=== PATIENT | female | born 2000 | race Caucasian/White ===

== ENCOUNTER 2024-06-07 15:04 | Outpatient (OUT) | payer OTHER, SELFPAY ==
[2024-06-07 15:34] LABS: BOX Test Reference Lab UNITY; BOX Test Sent Out UNITY
[2024-06-07 15:35] LABS: Basophils Percent Auto 0.2 % (0.2-2.0); Eosinophils Absolute Auto 0.1 10^3/uL (0.0-0.7); Eosinophils Percent Auto 0.5 % (0.9-7.0); Hematocrit 35.7 % (36.0-48.0); Hemoglobin 12.6 g/dL (12.0-16.0); Immature Granulocytes Abs Auto 0.02 10^3/uL (0.00-0.03); Immature Granulocytes Pct Auto 0.2 % (0.0-0.5); Lymphocytes Absolute Auto 2.6 10^3/uL (1.2-3.8); Mean Corpuscular HGB Conc 35.3 g/dL (29.9-35.2); Mean Corpuscular Hemoglobin 31.5 pg (26.7-34.0); Mean Corpuscular Volume 89.3 fL (81.0-99.0); Monocytes Absolute Auto 0.6 10^3/uL (0.3-0.8); Monocytes Percent Auto 6.2 % (1.7-12.0); Neutrophils Absolute Auto 6.1 10^3/uL (1.4-6.5); Neutrophils Percent Auto 64.9 % (43.0-75.0); Platelet Count 284 10^3/uL (150-450); Red Cell Distribution Width 13.3 % (11.0-15.0); White Blood Count 9.4 10^3/uL (4.0-11.0)
[2024-06-07 15:45] LABS: Estimated Average Glucose 97 mg/dL
[2024-06-07 15:53] LABS: Amphetamine Screen Urine NEGATIVE (NEGATIVE); Barbiturates Screen Urine NEGATIVE (NEGATIVE); Benzodiazepines Screen Urine NEGATIVE (NEGATIVE); Buprenorphine Screen Urine NEGATIVE (NEGATIVE); Cannabinoid Screen Urine NEGATIVE (NEGATIVE); Cocaine Screen Urine NEGATIVE (NEGATIVE); Methadone Screen Urine NEGATIVE (NEGATIVE); Methamphetamines Screen Urine NEGATIVE (NEGATIVE); Opiate Screen Urine NEGATIVE (NEGATIVE); Oxycodone Screen Urine NEGATIVE (NEGATIVE); Phencyclidine Screen Urine NEGATIVE (NEGATIVE); Tricyclic Antidepressant Urine NEGATIVE (NEGATIVE)
[2024-06-09 05:10] LABS: HCV Ab Non Reactive (Non Reactive); HIV Ab/p24 Ag Screen Non Reactive (Non Reactive); Rubella Antibodies, IgG 5.05 index (Immune >0.99)
[2024-06-09 06:10] LABS: HBsAg Screen Negative (Negative)
[2024-06-09 11:14] LABS: Rapid Plasma Reagin, Quant Non Reactive titer (NonRea<1:1)
== END 2024-06-07 15:05 | disposition home or self-care (01) ==
PROVIDERS: Visit Provider Obstetrics & Gynecology
DX: Z34.01 Encounter for supervision of normal first pregnancy, first trimester (principal); Z36.0 Encounter for antenatal screening for chromosomal anomalies; N92.6 Irregular menstruation, unspecified
CPT/HCPCS: 36415; 80307; 83036; 85025; 86592; 86762; 86803; 86850; 86900; 86901; 87086; 87340; 87389

== ENCOUNTER 2024-09-03 10:51 | Outpatient (OUT) | payer OTHER, SELFPAY ==
--- OUTSIDE RECORDS SUMMARY | 2024-09-03 09:00 | XMS_ITS | Encounter Summary ---
Author Organization [facility] Address [address] [place] [place] [address] Care Team Providers Care Concrete Finisher Apprentice Name Role Phone Unavailable Primary Care Provider Unavailabl e Encounter Details Date Type Department Care Team (Latest Contact Info) Description 09/03/2024 9:00 AM EDT Ancillary Procedure [facility] [address] [facility] [place] [address] Encounter for follow-up ultrasound of anatomy Social History Tobacco Use Types Packs/Day Years Used Date Smoking Tobacco: Never Smokeless Tobacco: Never Alcohol Use Standard Drinks/Week Comments Never 0 (1 standard drink = 0.6 oz pur e alcohol) Estimated Date of Delivery Comme nts Yes 12/18/2024 Based on Ultraso und Sex and Gender Information Value Date Recorded Sex Assigned at Female 10/19/2022 8:44 AM EDT Legal Sex Female 11:46 PM EDT Gender Identity Female 10/19/2022 8:44 AM EDT Sexual Orientation Not on file documented as of this encounter Plan of Treatment Upcoming Encounters Date Type Department Care Team (Late st Contact Info) Description 10/02/2024 9:30 AM EDT Routine [facility] [address] [place] [address] Sheba Walker PA [address] [place], [place] [id number] Pending Results Name Type Priority Associated Diagnoses Date /Time US OB limited 1+ fetuses Imaging Routine Encounter for follow-up ultrasound of anatomy 09/03/2024 9:23 AM EDT documented as of this encounter Visit Diagnoses Diagnosis Encounter for follow-up ultrasound of anatomy documented in this encounter
--- OUTSIDE RECORDS SUMMARY | 2024-09-03 10:55 | XMS_ITS | Encounter Summary ---
Author Organization [facility] Address [address] [place] [address] Care Team Providers Care School Janitor Name Role Phone Unavailable Primary Care Provider Unavailabl e Encounter Details Date Type Department Care Team (Latest Contact Info) Description 08/27/2024 Travel Social History Tobacco Use Types Packs/Day Years [...] AM EDT Routine [facility] [address] [facility] [place] [id number] Sehba Walker PA [address] [facility] [address] [place], [facility] documented as of this encounter Visit Diagnoses Not on filedocumented in this encounter
--- OUTSIDE RECORDS SUMMARY | 2024-09-03 10:55 | XMS_ITS | Patient Health Record ---
Author Organization [facility] Address [address] [place] [address] Care Team Providers Care Rack Production Worker Name Role Phone GENOVEVA RANDALLEN Primary Care Provider Unavailabl e Allergies No Known Allergies Reason For Referral No Information Medications Medication SIG (Take, Route, Frequency, Duration) Notes Start Date End Date Status 1.5-30 MG-MCG 1 tablet Orally Once a day A ctive Immunizations Vaccine Route Administration Date Status Comme nts [id number] Quad PFS (0.5mL Admin) 18 y/o & older Unknown 07/25/2021 Refused z2022 Fluzone Quad MDV (0.5m L Admin) 6mo & older Unknown 04/29/2021 Contraindications z2023 Fluzone, 6mo & older, Quad PFS (0.5mL Admin) Unknown 05/11/2023 Refused Social History Tobacco Use: Social History Observation Description Date Details (start date - stop date) Unknown Tobacco Use Question Answer Notes Are you a Uses tobacco in other forms Additional Findings: Tobacco User e-Cigarette Problems Problem Type SNOMED Code ICD Code Onset Dates Problem Status W/U Status Risk Notes Problem 527511790 Nausea (R11.0) Active confirmed Problem 47035857 Less than 8 week s gestation of (Z3A.01) Active confirmed Problem Mixed anxiety and depressive disorder (516143575) Anxiety and depression (F41.8) Active confirmed Problem 20329815 Other tobacco product nicotine dependence, uncomplicated (F17.290) Active confirmed Plan Of Treatment No Information Insurance Providers Payer Name Payer Address Payer Phone Subscriber Number Group Number Insured Name Patient Relationship to Insured Coverage Start Date Coverage End Date [employer] [facility] [address] [place] [address] [id number] Don Oneida Self - patient is the insured Medical (General) History Medical History History ICD Code Anxiety and depression F41.8 History of UTI Z87.440 Surgical History Surgery Date(Month/Year) wisdom teeth Hospitalization History Reason Date(Month/Year) childbirth
--- OUTSIDE RECORDS SUMMARY | 2024-09-03 10:55 | XMS_ITS | Encounter Summary ---
Author Organization [facility] Address [address] [place] [address] Care Team Providers Care Boat Hand Name Role Phone Unavailable Primary Care Provider Unavailabl e Encounter Details Date Type Department Care Team (Late Contact Info) Description 06/28/2024 Abstract [facility] [address] [facility] [place] [address] Solitario Tuttle DO [address] [place] [address] [place] [address] Social History Tobacco Use Types Packs/Day Years [...] AM EDT Routine [facility] [address] [place] [address] Sheba Walker PA [address] [facility] [place] [address] documented as of this encounter Visit Diagnoses Not on filedocumented in this encounter
--- OUTSIDE RECORDS SUMMARY | 2024-09-03 10:55 | XMS_ITS | Patient Health Record ---
Author Organization [facility] Address [address] [place] [address] Care Team Providers Care Fishery Division Chief Name Role Phone Marti Greene APRN Primary Care Provider Unava ilable Reason For Referral No Information Medications Medication SIG (Take, Route, Frequency, Duration) Notes Start Date End Date Status 04/23 1-20 MG-MCG take 1 tablet by oral route once daily Oral 1 Active Immunizations Vaccine Route Administration Date Status Comme nts DTaP Unknown 1998 Administered DTaP Unknown 1998 Administered DTaP Unknown 1998 Administered DTaP Unknown 09/24/1999 Administered DTaP Unknown 11/25/2005 Administered Hep A, ped/adol, 3 dose Unknown 09/11/2014 Administered Hep A, ped/adol, 3 dose IM Intramuscular 09/16/2016 Admini stered Hep B ( - 19 yo) Unknown 03/16/1999 Administered Hib (PRP-OMP) - PedvaxHib, 3 dose schedule Unknown 1998 Administered Hib (PRP-OMP) - PedvaxHib, 3 dose schedule Unknown 1998 Administered Hib (PRP-OMP) - PedvaxHib, 3 dose schedule Unknown 1998 Administered Hib (PRP-OMP) - PedvaxHib, 3 dose schedule Unknown 09/24/1999 Administered HPV 9 Unknown 09/11/2014 Administered HPV 9 Unknown 11/11/2014 Administered HPV 9 Unknown 04/28/2015 Administered Influenza 3 VERONICA (Afluria) 3 years+ Unknown 03/02/2012 Administered Influenza, seasonal, injectable, preservative free, 6-35 months Unknown 03/02/2012 Administered IPV (Polio) Unknown 1998 Administered IPV (Polio) Unknown 1998 Administered IPV (Polio) Unknown 07/08/1999 Administered IPV (Polio) Unknown 11/26/2003 Administered Men B (Bexsero) IM Intramuscular 09/16/2016 Administered Men B (Bexsero) IM Intramuscular 10/26/2016 Administered Meningococcal ACYW (Menactra) Unknown 09/25/2009 Administered Meningococcal ACYW (Menactra) Unknown 09/16/2015 Administered Meningococcal ACYW (Menactra) Unknown 02/10/2018 Others MMR Unknown 07/08/1999 Administered MMR Unknown 11/26/2003 Administered Tdap Unknown 10/19/2010 Administered Varicella Unknown 07/08/1999 Administered Varicella Unknown 09/05/2008 Administered Hep B ( - 17 yo) Unknown 1998 Administered Hep B ( - 17 yo) Unknown 1998 Administered Problems Problem Type SNOMED Code ICD Code Onset Dates Problem Status W/U Status Risk Notes Problem Generalized anxiety disorder (93296735) Generalized anxiety disorder (F41.1) 8 Active confirmed Problem Current moderate episode of major depressive disorder without prior episode (F32.1) 8 Active confirmed Problem Constipation (98743871) Constipation (K59.00) 9 Active confirmed Plan Of Treatment No Information Insurance Providers Payer Name Payer Address Payer Phone Subscriber Number Group Number Insured Name Patient Relationship to Insured Coverage Start Date Coverage End Date Umr [address] [address] [place] [address] [id number] Miles Ochoa Other [employer] [address] [place] [phone] [id number] Abram Landaverde Other [employer] [address] [place] [address] [id number] Miles Ochoa Other [facility] [address] [address] [place] [address] [id number] Miles Ochoa Other Medications Administered Medication Instructions Date of Administration Dosage Notes PPD 02/08/2014
--- OUTSIDE RECORDS SUMMARY | 2024-09-03 10:55 | XMS_ITS | Encounter Summary ---
Author Organization [facility] Address [address] [place] [address] Care Team Providers Care Pearl Maker Name Role Phone Unavailable Primary Care Provider Unavailabl e Encounter Details Date Type Department Care Team (Late Contact Info) Description 10/24/2022 Abstract [facility] [address] [facility] [place] [address] Solitario Tuttle DO [address] [place] [address] Dr [place], [place] [address] Social History Tobacco Use Types Packs/Day Years Used Date Smoking Tobacco: Never Smokeless Tobacco: Never Tobacco Cessation:Counseling Given: Not Answered Alcohol Use Standard Drinks/Week Comments Never 0 (1 standard drink = 0.6 oz pur e alcohol) Comments Unknown Sex and Gender Information Value Date Recorded Sex Assigned at Female 10/19/2022 8:44 AM EDT Legal Sex Female 11:46 PM EDT Gender Identity Female 10/19/2022 8:44 AM EDT Sexual Orientation Not on file documented as of this encounter Plan of Treatment Upcoming Encounters Date Type Department Care Team (Late st Contact Info) Description 10/02/2024 9:30 AM EDT Routine [facility] [address] [facility] [place] [address] Sheba Walker PA [address] [facility] [place] [address] documented as of this encounter Visit Diagnoses Not on filedocumented in this encounter
--- OUTSIDE RECORDS SUMMARY | 2024-09-03 10:55 | XMS_ITS | Clinical Summary ---
Author Organization [facility] Address [address] [place] [address] Care Team Providers Care Inspector Canned Food Reconditioning Name Role Phone Unavailable Primary Care Provider Unavailabl e Allergies No known active allergies Medications promethazine (Phenergan) 12.5 MG tabletIndications:P regnancy, unspecified gestational age,Nausea and vomiting during Take 1 tablet (12.5 mg) by mouth every 6 (six) hours if needed for nausea or vomiting for up to 30 doses Take 1 tablet by mouth every 6 hours as needed for nausea. 30 tablet 3 5 Active iron polysaccharides (ProFe) 391.3 (180 Fe) MG capsule 1 capsule 1 (one) time each day at the same time Active 28-0.8 MG tablet 1 (one) time each day at the same time Active venlafaxine (Effexor) 37.5 MG tablet 1 (one) time each day at the same time 3 Active Encounters Date Type Department Care Team Description 09/03/2024 9:50 AM EDT Routine [facility] [address] [place] [address] Solitario Tuttle DO Second trimester ; 24 weeks gestation of ; Diabetes mellitus screening 09/03/2024 9:00 AM EDT Ancillary Procedure [facility] [address] [place] [address] Encounter for follow-up ultrasound of anatomy 08/27/2024 Travel 08/06/2024 Telephone [facility] [address] [place] [address] [place] [address] Solitario Tuttle, DO 08/02/2024 10:50 AM EDT Routine [facility] [address] [place] [address] Rayne Henson, APARTMENT MANAGER 20 weeks gestation of ; Second trimester 08/02/2024 10:00 AM EDT Ancillary Procedure [facility] [address] [place] [address] Second trimester ; 16 weeks gestation of ; History of gestational diabetes; Screening, , for anatomic survey 07/28/2024 Travel 07/05/2024 10:40 AM EDT Routine [facility] [address] [place] [address] Solitario Tuttle, Second trimester ; 16 weeks gestation of ; History of gestational diabetes; Screening, , for anatomic survey 07/05/2024 Bamboo flowsheet [facility] [address] [place] [address] [place] [address] Solitario Tuttle, DO 06/29/2024 Travel 06/28/2024 Abstract [facility] OB [address] [place] [address] Solitario Tuttle, DO 06/13/2024 Abstract [facility] [address] [place] [address] [place] [address] Solitario Tuttle, DO 06/07/2024 2:00 PM EST Initial [facility] [address] [place] [address] GA: 12w2d 06/07/2024 1:30 PM EST Ancillary Procedure [facility] [address] [facility] [place] [address] Missed menses 06/07/2024 Clinisync Result Encounter [facility] External Department Unsolicited Solitario Tuttle DO 06/06/2024 Travel from Last 3 Months Social History Tobacco Use Types Packs/Day Years [...] AM EDT Sexual Orientation Not on file Last Filed Vital Signs Vital Sign Reading Time Taken Comments Blood Pressure 116/62 09/03/2024 10:32 AM EDT Pulse - - Temperature - - Respiratory Rate - - Oxygen Saturation - - Inhaled Oxygen Concentration - - Weight 88 kg (194 lb) 09/03/2024 10:32 AM EDT Height 162.6 cm (5' 4 ) 05/03/2022 12:00 PM EST Body Mass Index 33.3 05/03/2022 12:00 PM EST Plan of Treatment Upcoming Encounters Date Type Department Care Team (Late st Contact Info) Description 10/02/2024 9:30 AM EDT Routine [facility] [address] [facility] [place] [id number] Sheba Walker PA [address] [facility] [place] [address] Procedures Procedure Name Priority Date/Time Associated Diagnosis Comments POCT URINALYSIS DIPSTICK Routine 09/03/2024 10:17 AM EDT Second trimester POCT URINALYSIS DIPSTICK Routine 08/02/2024 11:32 AM EDT 20 weeks gestation of US OB 14+ WEEKS ANATOMY SCAN Routine 08/02/2024 11:10 AM EDT Second trimester 16 weeks gestation of History of gestational diabetes Screening, , for anatomic survey POCT URINALYSIS DIPSTICK Routine 06/11/2024 7:34 AM EDT Missed menses POCT , URINE Routine 06/11/2024 7:34 AM EDT Missed menses HBSAG SCREEN Routine 06/07/2024 3:25 PM EST RAPID PLASMA REAGIN, QUANT Routine 06/07/2024 3:25 PM EST HCV ANTIBODY RFX TO QUANT PCR Routine 06/07/2024 3:25 PM EST HIV AB/P24 AG WITH REFLEX Routine 06/07/2024 3:25 PM EST ALL RUBELLA IGG AB Routine 06/07/2024 3: 25 PM EST ALL TYPE AND SCREEN Routine 06/07/2024 3 :25 PM EST MLR HEMOGLOBIN A1C Routine 06/07/2024 3: 25 PM EST ALL CBC WITH AUTO DIFF Routine 06/07/2024 3:25 PM EST BOX TEST Routine 06/07/2024 3:25 PM EST [facility] DRUG SCREEN RAPID (URINE) Routine 06/07/2024 3:12 PM EST US OB TRANSVAGINAL Routine 06/07/2024 1: 56 PM EST Missed menses from Last 3 Months Results * POCT urinalysis dipstick manually resulted (09/03/2024 10:17 AM EDT) Only the most recent of3 resultswithin the time period is included. Color, UA Yellow Clarity, UA Clear Glucose, UA Negative Negative - 2000(110) ++++ mg/dL Bilirubin, UA Negative Negative - 4(70) +++ mg/dL Ketones, UA Negative Negative - 160(16) ++++ mg/dL Spec Grav, UA 1.020 1 - 1.03 Blood, UA Positive Negative - 50 Stephon/mcL Comment:trace pH, UA 6.5 5 - 9 Protein, UA Negative Negative - 2000(20) ++++ mg/dL Urobilinogen, UA 0.2 0.2 - 12 mg/dL Leukocytes, UA Trace Negative - 500+++ Rafael/mcL Nitrite, UA Negative Negative - Positive Urine 09/03/2024 10:1 7 AM EDT us Solitario Parag DO POINT OF CARE TEST ENTER/EDIT OR DERABLES Final Result * US OB 14+ weeks anatomy scan (08/02/2024 11:10 AM EDT) Anatomical Region Laterality Modality Body Ultrasound 08/05/2024 8:56 PM EDT Narrative 08/05/2024 8:56 PM EDT EXAM: US OB 14+ WEEKS ANATOMY SCAN HISTORY: Anatomy. SANDRO 12/18/2024. . COMPARISON: U/S Ob 06/07/2024 TECHNIQUE: Two-dimensional transabdominal grayscale ultrasound imaging of the pelvis was performed. FINDINGS: Gestation: Single Presentation: Breech Cardiac Activity: 165 beats per minute Placental Location: Posterior with no sonographic abnormalities identified. Distance from Placental Tip to Cervix: 3.0 cm Cervical Length: 4.5 cm Amniotic Fluid Index: Not measured, appears visually adequate MEASUREMENTS: BPD: 4.1 cm EGA: 18 weeks 3 days HC: 17.1 cm EGA: 19 weeks 5 days AC: 14.7 cm EGA: 20 weeks 0 days FL: 3.3 cm EGA: 20 weeks to days HC/AC Ratio: 1.16 (1.08-1.26) Gestational age by today's ultrasound is 19 weeks 4 days (+/- 10 days gestation). Estimated Weight: 326 grams, +/- 49 grams ( 0 lb 12 oz). Weight Percentile for gestational age: 30 % ANATOMY C-Spine: Unremarkable T-Spine: Unremarkable L-Spine: Unremarkable Sacrum: Unremarkable Four Chamber Heart: Unremarkable LVOT: Not visualized RVOT: Suboptimally visualized Stomach: Unremarkable Kidneys: Unremarkable Bladder: Unremarkable Diaphragm: Unremarkable Cord insertion: Unremarkable Cord vessels: Three Lateral Ventricles: Unremarkable Cerebellum: Unremarkable Cisterna Magna: Unremarkable Posterior Fossa: Unremarkable Right Femur: Unremarkable Left Femur: Unremarkable Right Tib/Fib: Unremarkable Left Tib/Fib: Unremarkable Right Rad/Ulnar: Unremarkable Left Rad/Ulnar: Unremarkable Right Humerus: Unremarkable Left Humerus: Unremarkable Nose/Lips: Unremarkable Profile: Not visualized IMPRESSION: 1. Single, live intrauterine gestation 20 weeks, 2 days by LMP. Today's ultrasound measurements correlate with a gestational age of 19 weeks 4 days. 2. Nonvisualization of the LVOT and profile. Suboptimal visualization of the RVOT. Remaining anatomy appears unremarkable. Interpreted by: Electronically signed by CANDY VERMA II, MD, PHD at 05-Aug-2024 08:54:51 PM [facility] Procedure Note Candy Verma MD - 08/05/2024 EXAM: US OB 14+ WEEKS ANATOMY SCAN HISTORY: Anatomy. SANDRO 12/18/2024. . COMPARISON: U/S Ob 06/07/2024 TECHNIQUE: Two-dimensional transabdominal grayscale ultrasound imaging ofthe pelvis was performed. FINDINGS: Gestation: Single Presentation: Breech Cardiac Activity: 165 beats per minute Placental Location: Posterior with no sonographic abnormalitiesidentified. Distance from Placental Tip to Cervix: 3.0 cm Cervical Length: 4.5 cm Amniotic Fluid Index: Not measured, appears visually adequate MEASUREMENTS: BPD: 4.1 cm EGA: 18 weeks 3 days HC: 17.1 cm EGA: 19 weeks 5 days AC: 14.7 cm EGA: 20 weeks 0 days FL: 3.3 cm EGA: 20 weeks to days HC/AC Ratio: 1.16 (1.08-1.26) Gestational age by today's ultrasound is 19 weeks 4 days (+/- 10 daysgestation). Estimated Weight: 326 grams, +/- 49 grams ( 0 lb 12 oz). Weight Percentile for gestational age: 30 % ANATOMY C-Spine: Unremarkable T-Spine: Unremarkable L-Spine: Unremarkable Sacrum: Unremarkable Four Chamber Heart: Unremarkable LVOT: Not visualized RVOT: Suboptimally visualized Stomach: Unremarkable Kidneys: Unremarkable Bladder: Unremarkable Diaphragm: Unremarkable Cord insertion: Unremarkable Cord vessels: Three Lateral Ventricles: Unremarkable Cerebellum: Unremarkable Cisterna Magna: Unremarkable Posterior Fossa: Unremarkable Right Femur: Unremarkable Left Femur: Unremarkable Right Tib/Fib: Unremarkable Left Tib/Fib: Unremarkable Right Rad/Ulnar: Unremarkable Left Rad/Ulnar: Unremarkable Right Humerus: Unremarkable Left Humerus: Unremarkable Nose/Lips: Unremarkable Profile: Not visualized IMPRESSION: 1. Single, live intrauterine gestation 20 weeks, 2 days by LMP. Today'sultrasound measurements correlate with a gestational age of 19 weeks 4days. 2. Nonvisualization of the LVOT and profile. Suboptimalvisualization of the RVOT. Remaining anatomy appearsunremarkable. Interpreted by: Electronically signed by CANDY VERMA II, MD, PHD [id number] 08:54:51 PM [facility] us Solitario Parag DO IMG OB US PROCEDURES Final Resul t * (ABNORMAL) POCT , urine manually resulted (06/11/2024 7:34 AM EDT) Pathologist [facility] Preg Test, Ur Positive Negative Urine 06/11/2024 7:34 AM EDT us Solitario Parag DO POINT OF CARE TEST ENTER/EDIT OR DERABLES Final Result * BOX TEST (06/07/2024 3:25 PM EST) Pathologist [facility] BOX TEST SENT OUT [facility] BOX1 [facility] B[facility] 06/07/24 [facility] 06/07/2024 3:25 PM EST 06/07/2024 3:30 PM EST Narrative [facility] - 06/07/2024 3:34 PM EST [place] B[facility] us Solitario Parag DO LAB BLOOD ORDERABLES Final Resul t [facility] * HBSAG SCREEN (06/07/2024 3:25 PM EST) Pathologist [facility] HBSAG SCREEN Negative Negative [facility] Comment: Performed at: [facility] [id number] Plant And Maintenance Technician: Phil Knox PhD, Phone: [phone] 06/07/2024 3:25 PM EST 06/07/2024 3:30 PM EST Narrative [facility] - 06/09/2024 11:14 AM EST Solitario Parag DO LAB BLOOD ORDERABLES Final Resul t Performing Organization Address [facility] Co de Phone Number [facility] * RAPID PLASMA REAGIN, QUANT (06/07/2024 3:25 PM EST) RAPID PLASMA REAGIN, QUANT Non Reactive NonRea<1: 1 titer [facility] Comment: Please Note: This test does not meet current guidelines for screening and diagnosis of syphilis. This test is intended for following treatment response in patients being treated for syphilis infection. To screen for syphilis infection, a reflex cascade that includes both RPR and a treponema-specific assay should be utilized, such as Treponema pallidum (Syphilis) Screening [place] (573080) or Rapid Plasma Reagin (RPR) Test With Reflex to Quantitative RPR and Confirmatory Treponema pallidum Antibodies (987158). Performed at: [facility] [id number] Plant And Maintenance Technician: Phil Knox PhD, Phone: [phone] 06/07/2024 3:25 PM EST 06/07/2024 3:30 PM EST [facility]ative [facility] 06/09/2024 11:14 AM EST [facility] LAB BLOOD ORDERABLES Final Resul t Performing Organization Address City/[facility]/ZIP Co de Phone Number [facility] * HIV AB/P24 AG WITH REFLEX (06/07/2024 3:25 PM EST) Pathologist [facility] HIV AB/P24 AG SCREEN Non Reactive Non Reactive [facility] Comment: HIV-1/HIV-2 antibodies and HIV-1 p24 antigen were NOT detected. There is no laboratory evidence of HIV infection. HIV Negative Performed at: [address] [id number] Plant And Maintenance Technician: Phil Knox PhD, Phone: [phone] 06/07/2024 3:25 PM EST 06/07/2024 3:30 PM EST Narrative [facility] - 06/09/2024 5:10 AM EST [facility] LAB BLOOD ORDERABLES Final Resul t Performing Organization Address [facility]/ZIP Co de Phone Number [facility] * HCV ANTIBODY RFX TO QUANT PCR (06/07/2024 3:25 PM EST) Pathologist [facility] HCV AB Non Reactive Non Reactive [facility] INTERPRETATION: Comment . [facility] Comment: Not infected with HCV unless early or acute infection is suspected (which may be delayed in an immunocompromised individual), or other evidence exists to indicate HCV infection. 06/07/2024 3:25 PM EST 06/07/2024 3:30 PM EST Narrative [facility] - 06/09/2024 5:10 AM EST [facility]OD ORDERABLES Final Resul t Performing Organization Address [facility] Co de Phone Number [facility] * MLR HEMOGLOBIN A1C (06/07/2024 3:25 PM EST) [facility] GLYCOHEMOGLOBIN A1C 5.0 4.5 - 6.2 % [facility] Comment: ADA RECOMMENDED LIMIT 4.0 - 6.0 ADA THERAPEUTIC TARGET < 7.0 ACTION SUGGESTED > 7.0 ESTIMATED AVERAGE GLUCOSE 97 mg/dL TB 06/07/2024 3:25 PM EST 06/07/2024 3:30 PM EST Narrative [facility] - 06/07/2024 3:49 PM EST [facility] DO [facility] Final Result Performing Organization Address City/[facility]/ZIP Co de Phone Number [facility] * ALL TYPE AND SCREEN (06/07/2024 3:25 PM EST) Pathologist [facility] BLOOD TYPE A Negative [facility] ANTIBODY SCREEN NEGATIVE [facility] 06/07/2024 3:25 PM EST 06/07/2024 3:30 PM EST Narrative [facility] - 06/07/2024 4:25 PM EST [facility] , us Solitario Parag DO [facility] Final Result [facility] * ALL RUBELLA IGG AB (06/07/2024 3:25 PM EST) [facility] RUBELLA ANTIBODIES, IGG 5.05 Immune >0.99 index TB Comment: Non-immune <0.90 Equivocal 0.90 - 0.99 Immune >0.99 06/07/2024 3:25 PM EST 06/07/2024 3:30 PM EST Narrative [facility] - 06/09/2024 5:10 AM EST us Solitario Parag [facility] Final Result Performing Organization Address City/[facility]/ZIP Co de Phone Number [facility] * (ABNORMAL) ALL CBC WITH AUTO DIFF (06/07/2024 3:25 PM EST) [facility] TB WBC 9.4 4.0 - 11.0 10 3/uL [facility] TB RBC 4.00(L) 4.20 - 5.40 10 6/uL [facility] TB HGB 12.6 12.0 - 16.0 g/dL TB TB HCT 35.7(L) 36.0 - 48.0 % TB TB MCV 89.3 81.0 - 99.0 fL TB TB MCH 31.5 26.7 - 34.0 pg TBH TBH MCHC 35.3(H) 29.9 - 35.2 g/dL TB TB RDW 13.3 11.0 - 15.0 % [facility] TB PLT 284 150 - 450 10 3/uL TB TB MPV 9.0(L) 9.5 - 13.5 fL [facility] NEUTROPHILS PERCENT AUTO 64.9 43.0 - 75.0 % [facility]H LYMPHOCYTES PERCENT AUTO 28.0 20.5 - 60.0 % [facility] MONOCYTES PERCENT AUTO 6.2 1.7 - 12.0 % TBH TBH EO % 0.5(L) 0.9 - 7.0 % [facility] BASOPHILS PERCENT AUTO 0.2 0.2 - 2.0 % [facility] IMMATURE GRANULOCYTES PCT AUTO 0.2 0.0 - 0.5 % [facility] NEUTROPHILS ABSOLUTE AUTO 6.1 1.4 - 6.5 10 3/uL TBH LYMPHOCYTES ABSOLUTE AUTO 2.6 1.2 - 3.8 10 3/uL TBH MONOCYTES ABSOLUTE AUTO 0.6 0.3 - 0.8 10 3/uL TBH TBH EO # 0.1 0.0 - 0.7 10 3/uL TBH BASOPHILS ABSOLUTE AUTO 0.0 0.0 - 0.1 10 3/uL [facility] IMMATURE GRANULOCYTES ABS AUTO 0.02 0.00 - 0.03 10 3/uL [facility] 06/07/2024 3:25 PM EST 06/07/2024 3:30 PM EST Narrative [facility] - 06/07/2024 3:36 PM EST us Solitario Parag DO [facility] Final Result [facility] TB * [facility] DRUG SCREEN RAPID (URINE) (06/07/2024 3:12 PM EST) Pathologist [facility] CANNABINOID SCREEN URINE NEGATIVE NEGATIVE TBH PHENCYCLIDINE SCREEN URINE NEGATIVE NEGATIVE TBH COCAINE SCREEN URINE NEGATIVE NEGATIVE TBH METHAMPHETAMINES SCREEN URINE NEGATIVE NEGATIVE TBH OPIATE SCREEN URINE NEGATIVE NEGATIVE TBH AMPHETAMINE SCREEN URINE NEGATIVE NEGATIVE TBH BENZODIAZEPINES SCREEN URINE NEGATIVE NEGATIVE TBH TRICYCLIC ANTIDEPRESSANT URINE NEGATIVE NEGATIVE TBH METHADONE SCREEN URINE NEGATIVE NEGATIVE TBH BARBITURATES SCREEN URINE NEGATIVE NEGATIVE TBH OXYCODONE SCREEN URINE NEGATIVE NEGATIVE TBH BUPRENORPHINE SCREEN URINE NEGATIVE NEGATIVE TBH Comment: DRUG CLASS TEST SYSTEM CUT-OFF CONCENTRATIONS ARE FOLLOWS: AMP (Amphetamine): 500 ng/mL BAR (Barbiturates): 200 ng/mL BZO (Benzodiazepines): 150 ng/mL BUP (Buprenorphine): 10 ng/mL FLORIAN (Cocaine): 150 ng/mL mAMP (Methamphetamine): 500 ng/mL MTD (Methadone): 200 ng/mL OPI (Opiates): 100 ng/mL OXY (Oxycodone): 100 ng/mL PCP (Phencyclidine): 25 ng/mL THC (Cannabinoids): 50 ng/mL TCA (Trycyclic Antidepressants): 300 ng/mL 06/07/2024 3:12 PM EST 06/07/2024 3:30 PM EST Narrative [facility] - 06/07/2024 3:54 PM EST us Solitario Tuttle DO [facility] Final Result [facility] * US OB transvaginal (06/07/2024 1:56 PM EST) Anatomical Region Laterality Modality Body Ultrasound 06/08/2024 8:25 AM EST Narrative 06/08/2024 8:25 AM EST EXAM: US OB TRANSVAGINAL HISTORY: Dating. COMPARISON: None available. TECHNIQUE: Two-dimensional transvaginal grayscale ultrasound imaging of the pelvis was performed. Color Doppler evaluation of the ovaries was also performed. FINDINGS: The uterus demonstrates a normal homogeneous echotexture. The cervix measures 5.1 cm in length and the cervical os is closed. The right ovary measures 1.7 x 1.6 x 1.7 cm and demonstrates a normal echotexture. There is normal color Doppler flow. The left ovary measures 2.9 x 1.4 x 2.3 cm and demonstrates a normal echotexture. There is normal color Doppler flow. No fluid is present within the cul-de-sac. There is a single, live intrauterine gestation identified with a heart rate of 152 beats per minute and a crown-rump length measurement of 5.8 cm, correlating to a gestational age of 12 weeks 2 days (+/- 8 days). There is no subchorionic hemorrhage visualized. IMPRESSION: 1. Single, live intrauterine gestation 11 weeks, 3 days by LMP. Today's ultrasound measurements correlate with a gestational age of 12 weeks 2 days (+/- 8 days). SANDRO by today's ultrasound is 12/18/2024. 2. Normal color Doppler evaluation of the bilateral ovaries. Electronically Signed:Electronically signed by CANDY VERMA II, MD, PHD at 08-Jun-2024 08:23:59 AM [facility] Procedure Note Candy Verma MD - 06/08/2024 EXAM: US OB TRANSVAGINAL HISTORY: Dating. COMPARISON: None available. TECHNIQUE: Two-dimensional transvaginal grayscale ultrasound imaging ofthe pelvis was performed. Color Doppler evaluation of the ovaries was alsoperformed. FINDINGS: The uterus demonstrates a normal homogeneous echotexture. The cervixmeasures 5.1 cm in length and the cervical os is closed. The right ovary measures 1.7 x 1.6 x 1.7 cm and demonstrates a normalechotexture. There is normal color Doppler flow. The left ovary measures 2.9 x 1.4 x 2.3 cm and demonstrates a normalechotexture. There is normal color Doppler flow. No fluid is present within the cul-de-sac. There is a single, live intrauterine gestation identified with a fetalheart rate of 152 beats per minute and a crown-rump length measurement of5.8 cm, correlating to a gestational age of 12 weeks 2 days (+/- 8 days).There is no subchorionic hemorrhage visualized. IMPRESSION: 1. Single, live intrauterine gestation 11 weeks, 3 days by LMP. Today'sultrasound measurements correlate with a gestational age of 12 weeks 2days (+/- 8 days). SANDRO by today's ultrasound is 12/18/2024. 2. Normal color Doppler evaluation of the bilateral ovaries. Electronically Signed:Electronically signed by CANDY VERMA II, MD, PHDat 08-Jun-2024 08:23:59 AM [facility] us Solitario Parag DO IMG OB US PROCEDURES Final Resul t from Last 3 Months Insurance [employer]
--- OUTSIDE RECORDS SUMMARY | 2024-09-03 10:56 | XMS_ITS | Encounter Summary ---
Author Organization [facility] Address [address] [place] [address] Care Team Providers Care Oil Dispatcher Name Role Phone Unavailable Primary Care Provider Unavailabl e Encounter Details Date Type Department Care Team (Late Contact Info) Description 06/13/2024 Abstract [facility] [address] [place] [address] Solitario Tuttle DO [address] [place] [address] [place] [address] Social History Tobacco Use Types Packs/Day [...] AM EDT Routine [facility] OB [address] [place] [address] Sheba Walker PA [address] [facility] [place] [address] documented as of this encounter Visit Diagnoses Not on filedocumented in this encounter
[2024-09-03 12:13] LABS: Basophils Percent Auto 0.2 % (0.2-2.0); Eosinophils Absolute Auto 0.1 10^3/uL (0.0-0.7); Eosinophils Percent Auto 0.6 % (0.9-7.0); Hematocrit 32.3 % (36.0-48.0); Hemoglobin 11.1 g/dL (12.0-16.0); Immature Granulocytes Abs Auto 0.17 10^3/uL (0.00-0.03); Immature Granulocytes Pct Auto 1.4 % (0.0-0.5); Lymphocytes Absolute Auto 2.5 10^3/uL (1.2-3.8); Lymphocytes Percent Auto 19.6 % (20.5-60.0); Mean Corpuscular HGB Conc 34.4 g/dL (29.9-35.2); Mean Corpuscular Hemoglobin 32.6 pg (26.7-34.0); Mean Platelet Volume 9.5 fL (9.5-13.5); Monocytes Absolute Auto 0.8 10^3/uL (0.3-0.8); Neutrophils Absolute Auto 9.1 10^3/uL (1.4-6.5); Neutrophils Percent Auto 72.2 % (43.0-75.0); Platelet Count 248 10^3/uL (150-450); Red Cell Distribution Width 13.5 % (11.0-15.0); White Blood Count 12.6 10^3/uL (4.0-11.0)
[2024-09-03 12:38] LABS: Glucose 1 Hour 112 mg/dL (<130)
== END 2024-09-03 10:52 | disposition home or self-care (01) ==
LOC: LAB 10:53
PROVIDERS: Visit Provider Obstetrics & Gynecology
DX: Z34.92 Encounter for supervision of normal pregnancy, unspecified, second trimester (principal); Z13.1 Encounter for screening for diabetes mellitus
CPT/HCPCS: 36415; 82105; 82950; 85025

== ENCOUNTER 2024-09-03 10:56 | Outpatient (OUT) | payer OTHER, SELFPAY ==
[2024-09-05 01:07] LABS: AFP Value 94.9 ng/mL (.); Gest. Age on Collection Date 20.3 weeks (.); Gestat. Age Based On As provided (.); Insulin Dep Diabetes No (.); Maternal Age At EDD 26.5 yr (.); OSBR Risk 1 IN 1162 (.); Results Report (.)
== END 2024-09-03 10:57 | disposition home or self-care (01) ==
LOC: LAB 10:57
PROVIDERS: Visit Provider Nurse Practitioner Family
DX: Z34.92 Encounter for supervision of normal pregnancy, unspecified, second trimester (principal)
CPT/HCPCS: 36415; 82105

== ENCOUNTER 2024-11-10 15:29 | Observation (INO) | payer OTHER, SELFPAY ==
--- OUTSIDE RECORDS SUMMARY | 2024-10-30 11:30 | XMS_ITS | Encounter Summary ---
Author Organization [facility] Address [address] [place] [address] Care Team Providers Care Paper Finisher Name Role Phone Unavailable Primary Care Provider Unavailabl e Reason for Visit * Reason Comments Routine Visit Encounter Details Date Type Department Care Team (Late Contact Info) Description 10/30/2024 11:30 AM EDT Routine [facility] [address] [place] [phone] Solitario Tuttle DO [address] [facility] [place], [place] [id number] Third trimester ([facility]); 33 weeks gestation of ([facility]) Social History Tobacco Use Types Packs/Day Years [...] on file documented as of this encounter Last Filed Vital Signs Vital Sign Reading Time Taken Comments Blood Pressure 110/60 10/30/2024 12:00 PM EDT Pulse - - Temperature - - Respiratory Rate - - Oxygen Saturation - - Inhaled Oxygen Concentration - - Weight 93.8 kg (206 lb 12 oz) 10/30/2024 12:00 P M EDT Height - - Body Mass Index 35.49 05/03/2022 12:00 PM EST documented in this encounter Progress Notes * She Benito, AUT[employer] PARTS SALESPERSON - 10/30/2024 11:30 AM EDT Reason for Appointment: Patient ID: Oneida Ochoa is a 24 y.o. female who presents for Routine Visit Patient presents today for Return OB appointment. MEDICATIONS Current Outpatient Medications Medication Instructions iron polysaccharides (ProFe) 391.3 (180 Fe) MG capsule 1 capsule, Every 24 hours 28-0.8 MG tablet Every 24 hours promethazine (PHENERGAN) 12.5 mg, Oral, Every 6 hours PRN, Take 1 tablet by mouth every 6 hours as needed for nausea. venlafaxine (Effexor) 37.5 MG tablet Every 24 hours ALLERGIES No Known Allergies PROBLEMS Active Ambulatory Problems Diagnosis Date Noted No Active Ambulatory Problems Resolved Ambulatory Problems Diagnosis Date Noted No Resolved Ambulatory Problems No Additional Past Medical History HISTORY PAST MEDICAL HISTORY SOCIAL HISTORY No past medical history on file. Social History Tobacco Use Smoking status: Never Smokeless tobacco: Never Vaping Use Vaping status: Every Day Substance Use Topics Alcohol use: Never Drug use: Yes Types: Marijuana FAMILY HISTORY No family history on file. SURGICAL HISTORY Past Surgical History: Procedure Laterality Date PAP SMEAR 10/21/2021 negative WISDOM TOOTH EXTRACTION teeth REVIEW OF SYSTEMS Review of Systems: Review of Systems Constitutional: Negative. HENT: Negative. Eyes: Negative. Respiratory: Negative. Cardiovascular: Negative. Gastrointestinal: Negative. Genitourinary: Negative. Musculoskeletal: Negative. Skin: Negative. Neurological: Negative. All other systems reviewed and are negative. Hematological: Negative. Endocrine: Negative. Allergic/Immunologic: Negative. OBJECTIVE Objective: OBGyn Exam Vitals: Estimated body mass index is 35.49 kg/m?? as calculated from the following: Height as of 05/03/22: 5' 4 . Weight as of this encounter: 206 lb 12 oz. BP: 110/60 Patient's last menstrual period was 03/19/2024. ASSESSMENT & PLAN ICD-10-CM 1. Third trimester ([facility]) Z34.93 POCT urinalysis dipstick manually resulted 2. 33 weeks gestation of ([facility]) Z3A.33 Return OB: Patient presents today for a routine obstetrics appointment. Patient is currently 33w0d . Patient states she is doing well but has complaints of being tired due to current . Patient has verbalizes frequent movement. labor precautions was discussed/given and patient was instructed to perform kick counts three times a day. Orders Placed This Encounter Procedures POCT urinalysis dipstick manually resulted Follow Up: Patient is to return to office in 2 week for routine OB appointment. Documented by She Benito LPN on behalf of: Solitario Tuttle DO documented in this encounter Plan of Treatment Upcoming Encounters Date Type Department Care Team (Late st Contact Info) Description 11/14/2024 9:30 AM EDT Routine [facility] [address] [place] [address] Rayne Henson, SENIOR INFORMATION SECURITY CONSULTANT [address] [place] [phone] documented as of this encounter Procedures Procedure Name Priority Date/Time Associated Diagnosis Comments POCT URINALYSIS DIPSTICK Routine 10/30/2024 12:05 PM EDT Third trimester ([facility]) documented in this encounter Results * (ABNORMAL) POCT urinalysis dipstick manually resulted (10/30/2024 12:05 PM EDT) Color, UA Yellow Clarity, UA Clear Glucose, UA Negative Negative - 2000(110) ++++ mg/dL Bilirubin, UA Negative Negative - 4(70) +++ mg/dL Ketones, UA Negative Negative - 160(16) ++++ mg/dL Spec Grav, UA 1.015 1 - 1.03 Blood, UA Negative Negative - 50 Stephon/mcL pH, UA 6.0 5 - 9 Protein, UA Negative Negative - 2000(20) ++++ mg/dL Urobilinogen, UA 0.2 0.2 - 12 mg/dL Leukocytes, UA Moderate Negative - 500+++ Rafael/mcL Nitrite, UA Negative Negative - Positive Urine 10/30/2024 12:0 5 PM EDT Solitario Tuttle DO POINT OF CARE TEST ENTER/EDIT OR DERABLES Final Result documented in this encounter Visit Diagnoses Diagnosis Third trimester ([facility]) state, incidental 33 weeks gestation of ([facility]) documented in this encounter
--- OUTSIDE RECORDS SUMMARY | 2024-11-10 15:32 | XMS_ITS | Encounter Summary ---
Author Organization [facility] Address [address] [place] [address] Care Team Providers Care Transaction Processor Name Role Phone Unavailable Primary Care Provider Unavailabl e Encounter Details Date Type Department Care Team (Late Contact Info) Description 10/30/2024 Bamboo flowsheet [facility] [address] [place] [address] Solitario Tuttle DO [address] [place], [place] [address] Social History Tobacco Use Types Packs/Day Years [...] Encounters Date Type Department Care Team (Late Contact Info) Description 11/14/2024 9:30 AM EDT Routine [facility] [address] [facility] [place] [place] [address] Rayne Henson, PODIATRIST ASSISTANT [address] [place] [phone] documented as of this encounter Visit Diagnoses Not on filedocumented in this encounter
--- OUTSIDE RECORDS SUMMARY | 2024-11-10 15:32 | XMS_ITS | Encounter Summary ---
Author Organization [facility] Address [address] [place] [address] Care Team Providers Care Clinical Rehabilitation Aide Name Role Phone Unavailable Primary Care Provider Unavailabl e Encounter Details Date Type Department Care Team (Latest Contact Info) Description 11/09/2024 Travel Social History Tobacco Use Types Packs/Day [...] AM EDT Routine [facility] [address] [place] [address] Rayne Henson, JASMINE [address] [place] [address] documented as of this encounter Visit Diagnoses Not on filedocumented in this encounter
--- OUTSIDE RECORDS SUMMARY | 2024-11-10 15:32 | XMS_ITS | Clinical Summary ---
Author Organization [facility] Address [address] [place] [address] Care Team Providers Care Curb Attendant Name Role Phone Unavailable Primary Care Provider Unavailabl e Allergies No known active allergies Medications promethazine (Phenergan) 12.5 MG tabletIndications:P regnancy, unspecified gestational age ([facility]),Nausea and vomiting during ([facility]) Take 1 tablet (12.5 mg) by mouth [...] Encounters Date Type Department Care Team Description 11/09/2024 Travel 10/30/2024 11:30 [place] [phone] Solitario Tuttle DO Third trimester ([facility]); 33 weeks gestation of ([facility]) 10/30/2024 [place] [address] Solitario Tuttle, 10/24/2024 Travel 10/16/2024 1:40 PM EDT Routine [facility] Patel [facility] [place] [address] Solitario Tuttle, Third trimester ([facility]); 31 weeks gestation of ([facility]) 10/16/2024 1:00 PM EDT Ancillary Procedure [place] [address] size inconsistent with dates ([facility]) 10/11/2024 Travel 10/02/2024 9:30 AM EDT Routine [facility] [place] [address] Sheba Walker PA Third trimester ([facility]); Screen for STD (sexually transmitted disease); size inconsistent with dates ([facility]) 10/02/2024 External Result Encounter NOM[facility] External Department Unsolicited Sheba Walker PA 10/02/2024 Bamboo flowsheet [facility] Patel [facility] [place] [address] Sheba Walker PA 09/26/2024 Travel 09/03/2024 9:50 AM EDT Routine [place] [place] [address] Solitario Tuttle, Second trimester ([facility]); 24 weeks gestation of ([facility]); Diabetes mellitus screening 09/03/2024 9:00 AM EDT Ancillary Procedure [facility] [place] [address] Encounter for follow-up ultrasound of anatomy ([facility]) 09/03/2024 Clinisync Result Encounter NOMS External Department Unsolicited Solitario Tuttle DO 08/27/2024 Travel from Last 3 Months Social History [...] oz) 10/30/2024 12:00 P M EDT Height 162.6 cm (5' 4 ) 05/03/2022 12:00 PM EST Body Mass Index 35.49 05/03/2022 12:00 PM EST Plan of Treatment Upcoming Encounters Date Type Department Care Team (Late st Contact Info) Description 11/14/2024 9:30 AM EDT Routine [facility] [address] [place] [address] Rayne Henson, ENVIRONMENTAL EPIDEMIOLOGIST [address] [place] [place] [phone] Procedures Procedure Name Priority Date/Time Associated Diagnosis Comments POCT URINALYSIS DIPSTICK Routine 10/30/2024 12:05 PM EDT Third trimester ([facility]) POCT URINALYSIS DIPSTICK Routine 10/16/2024 1:37 PM EDT Third trimester ([facility]) US OB FOLLOW UP TRANSABDOMINAL APPROACH Routine 10/16/2024 1:20 PM EDT size inconsistent with dates ([facility]) RECURRENT VAGINITIS (HTRX) Routine 10/02/2024 12:13 PM EDT POCT URINALYSIS DIPSTICK Routine 10/02/2024 9:53 AM EDT Third trimester ([facility]) AFP, SERUM, OPEN SPINA BIFIDA Routine 09/03/2024 12:06 PM EDT GLUCOSE 1 HOUR Routine 09/03/2024 12:06 PM EDT ALL CBC WITH AUTO DIFF Routine 12:02 PM EDT POCT URINALYSIS DIPSTICK Routine 09/03/2024 10:17 AM EDT Second trimester ([facility]) US OB LIMITED 1+ FETUSES Routine 09/03/2024 9:23 AM EDT Encounter for follow-up ultrasound of anatomy ([facility]) from Last 3 Months Results * (ABNORMAL) POCT urinalysis dipstick manually resulted (10/30/2024 12:05 PM EDT) Only the most recent of4 resultswithin the time period is included. Color, [...] Positive Urine 10/30/2024 12:0 5 PM EDT us Solitario Tuttle DO POINT OF CARE TEST ENTER/EDIT OR DERABLES Final Result * US OB follow up transabdominal approach (10/16/2024 1:20 PM EDT) Anatomical Region Laterality Modality Body Ultrasound 10/17/2024 6:48 PM EDT Impressions 10/18/2024 8:21 AM EDT Single, live intrauterine , current sonographic age of 31 weeks and 4 days, with an estimated date of delivery of December 14, 2024. TRANSCRIBED BY: ELECTRONICALLY SIGNED BY: Tomer Dowell MD Narrative 10/18/2024 8:21 AM EDT FINDINGS: A single, live intrauterine is present with normal cardiac rate of 167 beats per minute. Normal activity and amniotic fluid volume. Amniotic fluid index is 12 cm. Morphology is grossly normal. The current sonographic age is 31 weeks and 4 days, based on the following measurements: BPD 7.9 cm (31 weeks, 4 days) Head Circumference 29.2 cm (32 weeks, 1 day) Abdominal Circumference 27.2 cm (31 weeks, 2 days) Femur Length 6.0 cm (31 weeks, 2 days) Presentation Breech These measurements result in an estimated date of delivery of December 14, 2024. The current estimated weight is 1759 grams +/- 264g (3 pounds, 14 ounces). Procedure Note Tomer Dowell MD - 10/18/2024 FINDINGS: A single, live intrauterine is present with normal cardiacrate of 167 beats per minute. Normal activity and amniotic fluidvolume. Amniotic fluid index is 12 cm. Morphology is grossly normal. Thecurrent sonographic age is 31 weeks and 4 days, based on the followingmeasurements: BPD 7.9 cm (31 weeks, 4 days) Head Circumference 29.2 cm (32 weeks, 1 day) Abdominal Circumference 27.2 cm (31 weeks, 2 days) Femur Length 6.0 cm (31 weeks, 2 days) Presentation Breech These measurements result in an estimated date of delivery of 2024. The current estimated weight is 1759 grams +/- 264g (3pounds, 14 ounces). IMPRESSION: Single, live intrauterine , current sonographic age of 31 weeksand 4 days, with an estimated date of delivery of December 14, 2024. TRANSCRIBED BY: ELECTRONICALLY SIGNED BY: Tomer Dowell MD Sheba JESSICA IMG OB US PROCEDURES Final Resul t * RECURRENT VAGINITIS (HTRX) (10/02/2024 12:13 PM EDT) [facility] ATOPOBIUM VAGINAE 0 19.961 - 24.689 ppm 10/03/2024 5:58 AM EDT [facility] ATOPOBIUM VAGINAE Not Detected 19.961 - 24.689 ppm 10/03/2024 5:58 AM EDT [facility] BVAB 2,3 (BACTERIAL VAGINOSIS ASSOCIATED BACTERIA 2, 3); MOBILUNCUS SPP 0 19.961 - 24.689 ppm 10/03/2024 5:58 AM EDT [facility] BVAB 2,3 (BACTERIAL VAGINOSIS ASSOCIATED BACTERIA 2, 3); MOBILUNCUS SPP Not Detected 19.961 - 24.689 ppm 10/03/2024 5:58 AM EDT [facility] ALPHONSE ALBICANS, PARAPSILOSIS, TROPICALIS 0 19.961 - 30.770 ppm 10/03/2024 5:58 AM EDT [facility] ALPHONSE ALBICANS, PARAPSILOSIS, TROPICALIS Not Detected 19.961 - 30.770 ppm 10/03/2024 5:58 AM EDT [facility] ALPHONSE GLABRATA 0 23.000 - 32.138 ppm 10/03/2024 5:58 AM EDT [facility] ALPHONSE GLABRATA Not Detected 23.000 - 32.138 ppm 10/03/2024 5:58 AM EDT [facility] ALPHONSE KRUSEI 0 23.000 - 32.271 ppm 10/03/2024 5:58 AM EDT [facility] ALPHONSE KRUSEI Not Detected 23.000 - 32.271 ppm 10/03/2024 5:58 AM EDT [facility] CHLAMYDIA TRACHOMATIS 0 23.000 - 31.467 ppm 10/03/2024 5:58 AM EDT [facility] CHLAMYDIA TRACHOMATIS Not Detected 23.000 - 31.467 ppm 10/03/2024 5:58 AM EDT [facility] [place] GARDNERELLA VAGINALIS 0 19.961 - 24.689 ppm 10/03/2024 5:58 AM EDT [facility] [place] GARDNERELLA VAGINALIS Not Detected 19.961 - 24.689 ppm 10/03/2024 5:58 AM EDT [facility] [place] MEGASPHAERA (TYPES 1, 2) 0 19.961 - 24.689 ppm 10/03/2024 5:58 AM EDT [facility] [place] MEGASPHAERA (TYPES 1, 2) Not Detected 19.961 - 24.689 ppm 10/03/2024 5:58 AM EDT [facility] [place] NEISSERIA GONORRHOEAE 0 23.000 - 32.117 ppm 10/03/2024 5:58 AM EDT [facility] [place] NEISSERIA GONORRHOEAE Not Detected 23.000 - 32.117 ppm 10/03/2024 5:58 AM EDT [facility] TRICHOMONAS VAGINALIS 0 23.000 - 32.119 ppm 10/03/2024 5:58 AM EDT [facility] TRICHOMONAS VAGINALIS Not Detected 23.000 - 32.119 ppm 10/03/2024 5:58 AM EDT [facility] [place] MYCOPLASMA GENITALIUM 0 19.961 - 24.689 ppm 10/03/2024 5:58 AM EDT [facility] MYCOPLASMA GENITALIUM Not Detected 19.961 - 24.689 ppm 10/03/2024 5:58 AM EDT [facility] [place] Tissue 10/02/2024 12:1 3 PM EDT 10/03/2024 1:32 AM EDT us Sheba JESSICA LAB BLOOD ORDERABLES Final Resul t [facility] [address] [place] [address] * GLUCOSE 1 HOUR (09/03/2024 12:06 PM EDT) GLUCOSE 1 HOUR 112 <130 mg/dL [facility] 09/03/2024 12:0 6 PM EDT 09/03/2024 12:48 PM EDT Narrative LINDA - 09/03/2024 12:50 PM EDT Solitario Tuttle DO LAB BLOOD ORDERABLES Final Resul t LINDA [facility] * AFP, SERUM, OPEN SPINA BIFIDA (09/03/2024 12:06 PM EDT) RESULTS Report . [facility] TEST RESULTS: *Screen Negative* . [facility] GEST. AGE ON COLLECTION DATE 20.3 . weeks [facility] GESTAT. AGE BASED ON As provided . [facility] Comment: Recalculations are not recommended when gestational dating by LMP and ultrasound are within 10 days. [age]O [age] [facility] RACE . [facility] WEIGHT 185 . lbs [facility] INSULIN DEP DIABETES No . [facility] MULTIPLE GESTATION No . [facility] AFP VALUE 94.9 . ng/mL [facility] AFP MOM 1.84 . [facility] OSBR RISK 1 IN 1162 . [facility] INTERPRETATION Comment . [facility] Comment: Interpretation: Screen Negative This result is screen negative for OSB. The AFP MoM calculated is based on the gestational age provided. MS-AFP can identify up to 80% of open neural tube defects. Closed neural tube defects and some open defects may not be detected by this test. This test does not screen for Down Syndrome or Trisomy 18. If screening for Down Syndrome or Trisomy 18 is desired, contact [facility] to discuss available options. The [employer] recommends amniocentesis be offered to women age 35 and older. COMMENT: Comment . [facility] Comment: Donna Perez, Ph.D., [facility] Director References: Available Upon Request. Multiples Of Median Cutoffs For AFP Elevations Majano 2.5 Black 2.8 IDD 2.0 Twins 4.5 Abbreviation Definitions IDD - Insulin Dep Diabetes OSBR - Open Spina Bifida Risk For further inquiries contact [facility] at [phone]. This test was developed and its performance characteristics determined by [employer]. It has not been cleared or approved by the Food and Drug Administration. Performed at: [facility] [address] [place], [place] [id number] Fax Machine Repairer: Albert Wells [facility], Phone: [phone] 09/03/2024 12:0 6 PM EDT 09/03/2024 12:48 PM EDT Narrative [facility] - 09/05/2024 1:07 AM EDT N N ULTRASOUND [id number] 2 20 N 1 [address] White/ Rayne Henson NP LAB BLOOD ORDERABLES Final Re sult [facility] * (ABNORMAL) ALL CBC WITH AUTO DIFF (09/03/2024 12:02 PM EDT) [facility] WBC 12.6(H) 4.0 - 11.0 10 3/uL [facility]H RBC 3.40(L) 4.20 - 5.40 10 6/uL [facility] HGB 11.1(L) 12.0 - 16.0 g/dL [facility] HCT 32.3(L) 36.0 - 48.0 % [facility] MCV 95.0 81.0 - 99.0 fL [facility] MCH 32.6 26.7 - 34.0 pg [facility] MCHC 34.4 29.9 - 35.2 g/dL [facility] RDW 13.5 11.0 - 15.0 % [facility]H PLT 248 150 - 450 10 3/uL [facility] TBH MPV 9.5 9.5 - 13.5 fL [facility] NEUTROPHILS PERCENT AUTO 72.2 43.0 - 75.0 % [facility] LYMPHOCYTES PERCENT AUTO 19.6(L) 20.5 - 60.0 % [facility] MONOCYTES PERCENT AUTO 6.0 1.7 - 12.0 % [facility] EO % 0.6(L) 0.9 - 7.0 % [facility] BASOPHILS PERCENT AUTO 0.2 0.2 - 2.0 % [facility] IMMATURE GRANULOCYTES PCT AUTO 1.4(H) 0.0 - 0.5 % [facility] NEUTROPHILS ABSOLUTE AUTO 9.1(H) 1.4 - 6.5 10 3/uL [facility] LYMPHOCYTES ABSOLUTE AUTO 2.5 1.2 - 3.8 10 3/uL [facility] MONOCYTES ABSOLUTE AUTO 0.8 0.3 - 0.8 10 3/uL [facility] TBH EO # 0.1 0.0 - 0.7 10 3/uL [facility] BASOPHILS ABSOLUTE AUTO 0.0 0.0 - 0.1 10 3/uL [facility] IMMATURE GRANULOCYTES ABS AUTO 0.17(H) 0.00 - 0.03 10 3/uL [facility] 09/03/2024 12:0 2 PM EDT 09/03/2024 12:16 PM EDT Narrative [facility] - 09/03/2024 12:16 PM EDT us Solitario Parag DO [facility] Final Result [facility] * US OB limited 1+ fetuses (09/03/2024 9:23 AM EDT) Anatomical Region Laterality Modality Body Ultrasound 09/04/2024 11:3 3 PM EDT Narrative 09/04/2024 11:33 PM EDT EXAM: US OB LIMITED 1+ FETUSES HISTORY: Incomplete anatomy. Suboptimally visualized RVOT, LVOT and profile. SANDRO 12/18/2024. . Vaginal delivery x1. COMPARISON: U/S OB 08/02/2024, 06/07/2024. TECHNIQUE: Two-dimensional transabdominal grayscale ultrasound imaging of the pelvis was performed. FINDINGS: Gestation: Single Presentation: Cephalic Cardiac Activity: 140 beats per minute Placental Location: Posterior with no sonographic abnormalities identified. Distance from Placental Tip to Cervix: Not measured, appears visually adequate Cervical Length: Obscured by overlying head Amniotic Fluid: Not measured, appears visually adequate ANATOMY Four Chamber Heart: Unremarkable LVOT: Unremarkable RVOT: Unremarkable Profile: Unremarkable IMPRESSION: 1. Single, live intrauterine gestation 24 weeks, 6 days by LMP. 2. Unremarkable LVOT, RVOT and profile. This completes the anatomy survey. Interpreted by: Electronically signed by CANDY VERMA II, MD, PHD at 04-Sep-2024 11:31:40 PM [facility] Procedure Note Candy Verma MD - 09/04/2024 EXAM: US OB LIMITED 1+ FETUSES HISTORY: Incomplete anatomy. Suboptimally visualized RVOT, LVOTand profile. SANDRO 12/18/2024. . Vaginal delivery x1. COMPARISON: U/S OB 08/02/2024, 06/07/2024. TECHNIQUE: Two-dimensional transabdominal grayscale ultrasound imaging ofthe pelvis was performed. FINDINGS: Gestation: Single Presentation: Cephalic Cardiac Activity: 140 beats per minute Placental Location: Posterior with no sonographic abnormalitiesidentified. Distance from Placental Tip to Cervix: Not measured, appears visuallyadequate Cervical Length: Obscured by overlying head Amniotic Fluid: Not measured, appears visually adequate ANATOMY Four Chamber Heart: Unremarkable LVOT: Unremarkable RVOT: Unremarkable Profile: Unremarkable IMPRESSION: 1. Single, live intrauterine gestation 24 weeks, 6 days by LMP. 2. Unremarkable LVOT, RVOT and profile. This completes the anatomysurvey. Interpreted by: Electronically signed by CANDY VERMA II, MD, PHD [id number] 11:31:40 PM [facility] us Solitario Tuttle DO IMG OB US PROCEDURES Final Resul t from Last 3 Months Insurance [employer]
--- OUTSIDE RECORDS SUMMARY | 2024-11-10 15:33 | XMS_ITS | Patient Health Record ---
Author Organization [facility] C Address [address] [place] [address] Care Team Providers Care Company Controller Name Role Phone GENOVEVA RANDALLEN Primary Care Provider Unavailabl e Allergies No Known Allergies Reason For Referral No Information Medications Medication SIG (Take, Route, Frequency, Duration) Notes Start Date End Date Status 1.5-30 MG-MCG 1 tablet Orally Once a day A ctive Immunizations Vaccine Route Administration Date Status Comme nts [id number] Quad PFS (0.5mL Admin) 16 y/o & [...] Problem Status W/U Status Risk Notes Problem Gestation less than 9 weeks (944421789) Less than 8 weeks gestation of (Z3A.01) Active confirmed Problem Nausea (046634701) Nausea (R11.0) Active confirmed Problem Mixed anxiety and depressive disorder (156815774) Anxiety and depression (F41.8) Active confirmed Problem Tobacco user (570485041) Other tobacco product nicotine dependence, uncomplicated (F17.290) Active confirmed Plan Of Treatment No Information Insurance Providers Payer Name Payer Address Payer Phone Subscriber Number Group Number Insured Name Patient Relationship to Insured Coverage Start Date Coverage End Date [employer] [place] [address] [place] [address] [id number] Oneida Ochoa Self - patient is the insured Medical (General) History Medical History History ICD Code Anxiety and depression F41.8 History of UTI Z87.440 Surgical History Surgery Date(Month/Year) wisdom teeth Hospitalization History Reason Date(Month/Year) childbirth
--- OUTSIDE RECORDS SUMMARY | 2024-11-10 15:33 | XMS_ITS | Encounter Summary ---
Author Organization [facility] Address [address] [place] [address] Care Team Providers Care Aircraft Cleaner Name Role Phone Unavailable Primary Care Provider Unavailabl e Encounter Details Date Type Department Care Team (Late st Contact Info) Description 06/13/2024 Abstract [facility] LEUNG [address] [place] [address] Solitario Tuttle DO [address] [facility] [place] [address] Social History Tobacco Use Types Packs/Day [...] 9:30 AM EDT Routine [facility] [address] [facility] [place] [address] Rayne Henson NP [address] [place] [phone] documented as of this encounter Visit Diagnoses Not on filedocumented in this encounter
--- OUTSIDE RECORDS SUMMARY | 2024-11-10 15:33 | XMS_ITS | Encounter Summary ---
Author Organization [facility] Address [address] [place] [address] Care Team Providers Care President [place] Name Role Phone Unavailable Primary Care Provider Unavailabl e Encounter Details Date Type Department Care Team (Late Contact Info) Description 10/24/2022 Abstract SANTY LEUNG [address] [place] [address] Solitario Tuttle DO [address] [facility] [address] [place], [facility] Social History Tobacco Use Types Packs/Day Years [...] Info) Description 11/14/2024 9:30 AM EDT Routine [facility] LEUNG 102 [facility] [place] [address] Rayne Henson, JASMINE [address] [place] [address] documented as of this encounter Visit Diagnoses Not on filedocumented in this encounter
--- OUTSIDE RECORDS SUMMARY | 2024-11-10 15:33 | XMS_ITS | Patient Health Record ---
Author Organization [facility], [facility] . Address [address], [place] [address] Care Team Providers Care Manager Programs Name Role Phone Marti Greene APRN Primary [...] Unknown 07/08/1999 Administered Varicella Unknown 09/05/2008 Administered Problems Problem Type SNOMED Code ICD Code Onset Dates Problem Status W/U Status Risk Notes Problem Generalized anxiety disorder (24201112) Generalized anxiety disorder (F41.1) 8 Active confirmed Problem Moderate major depression, single episode (52398183) Current moderate episode of major depressive disorder without prior episode (F32.1) 8 Active confirmed Problem Constipation (94943700) Constipation (K59.00) 9 Active confirmed Plan Of Treatment No Information Insurance Providers Payer Name Payer Address Payer Phone Subscriber Number Group Number Insured Name Patient Relationship to Insured Coverage Start Date Coverage End Date Umr [address] [address] [place] [address] [id number] Miles Ochoa Other [employer] [address] [place] [address] [id number] Abram Landaverde Other [employer] [address] [place] [address] [id number] Miles Ochoa Other [facility] [address] [address] [place] [address] [id number] Miles Ochoa Other Medications Administered Medication Instructions Date of Administration Dosage Notes PPD 02/08/2014
--- OUTSIDE RECORDS SUMMARY | 2024-11-10 15:33 | XMS_ITS | Encounter Summary ---
Author Organization [facility] Address [address] [place] [address] Care Team Providers Care Wash Box Operator Name Role Phone Unavailable Primary Care Provider Unavailabl e Encounter Details Date Type Department Care Team (Late st Contact Info) Description 06/28/2024 Abstract [facility] Paulino LEUNG [address] [place] [address] Solitario Tuttle DO [address] [place] [address] Social History Tobacco Use Types Packs/Day [...] 9:30 AM EDT Routine [facility] [address] [facility] [place] [address] Rayne Henson NP [address] [place] [phone] documented as of this encounter Visit Diagnoses Not on filedocumented in this encounter
[2024-11-10 15:41] VITALS: TEMP 37
[2024-11-10 15:42] VITALS: BP 125/76; PULSE 108
[2024-11-10 16:03] LABS: Glucose Urine UA NEGATIVE (NEGATIVE)
[2024-11-10 16:22] LABS: Cast Seen? NONE SEEN #/LPF (NONE SEEN); Crystals Seen? None Seen #/HPF (None Seen); Urine Culture Indicated NO
== END 2024-11-10 16:55 | disposition home or self-care (01) ==
PROVIDERS: Admitting Provider Obstetrics & Gynecology; Visit Provider Obstetrics & Gynecology
DX: O26.893 Other specified pregnancy related conditions, third trimester (principal); R10.9 Unspecified abdominal pain; Z3A.34 34 weeks gestation of pregnancy
CPT/HCPCS: 59025; 81001; G0378; G0379

== ENCOUNTER 2024-11-20 15:13 | Outpatient (REF) | payer OTHER, SELFPAY ==
--- OUTSIDE RECORDS SUMMARY | 2024-11-14 09:30 | XMS_ITS | Encounter Summary ---
Author Organization [facility] Address [address] [place] [address] Care Team Providers Care Origination Specialist Name Role Phone Unavailable Primary Care Provider Unavailabl e Reason for Visit * Reason Comments Routine Visit Encounter Details Date Type Department Care Team (Late st Contact Info) Description 11/14/2024 9:30 AM EDT Routine [facility] [address] [facility] [place] [address] Rayne Henson, JASMINE [address] [facility] [place] [address] Third trimester ([facility]); 35 weeks gestation of ([facility]); H/O gestational diabetes in prior , currently ([facility]); Nausea and vomiting during ([facility]) Social History Tobacco Use Types Packs/Day Years [...] Sign Reading Time Taken Comments Blood Pressure 118/72 11/14/2024 9:55 AM EDT Pulse - - Temperature - - Respiratory Rate - - Oxygen Saturation - - Inhaled Oxygen Concentration - - Weight 95.3 kg (210 lb) 11/14/2024 9:55 AM EDT Height - - Body Mass Index 36.05 05/03/2022 12:00 PM EST documented in this encounter Progress Notes * Rayne Henson NP - 11/14/2024 9:30 AM EDT Reason for Appointment: Patient ID: Oneida Ochoa is a 24 y.o. female who presents for Routine Visit Patient presents today for Return OB appointment. MEDICATIONS Current Outpatient Medications Medication Instructions iron polysaccharides (ProFe) 391.3 (180 Fe) MG capsule 1 capsule, Every 24 hours ondansetron ODT (ZOFRAN-ODT) 4 mg, Oral, Every 6 hours PRN 28-0.8 MG tablet Every 24 hours promethazine [...] Negative. Endocrine: Negative. Allergic/Immunologic: Negative. OBJECTIVE Objective: Physical Exam Constitutional: Appearance: Normal appearance. She is well-developed. Cardiovascular: Rate and Rhythm: Normal rate and regular rhythm. Pulmonary: Effort: Pulmonary effort is normal. Breath sounds: Normal breath sounds. Abdominal: General: Bowel sounds are normal. There is no distension. Palpations: Abdomen is soft. Tenderness: There is no abdominal tenderness. There is no guarding or rebound. Musculoskeletal: General: No swelling. Normal range of motion. Right lower leg: No edema. Left lower leg: No edema. Neurological: Mental Status: She is alert and oriented to person, place, and time. Skin: General: Skin is warm and dry. Psychiatric: Mood and Affect: Mood normal. Behavior: Behavior normal. Vitals and nursing note reviewed. Exam conducted with a oral therapist present. Vitals: Estimated body mass index is 36.05 kg/m?? as calculated from the following: Height as of 05/03/22: 5' 4 . Weight as of this encounter: 210 lb. BP: 118/72 Patient's last menstrual period was 03/19/2024. ASSESSMENT & PLAN ICD-10-CM 1. Third trimester ([facility]) Z34.93 POCT urinalysis dipstick manually resulted 2. 35 weeks gestation of ([facility]) Z3A.35 3. H/O gestational diabetes in prior , currently ([facility]) O09.299 Z86.32 4. Nausea and vomiting during ([facility]) O21.9 ondansetron ODT (Zofran- ODT) 4 MG disintegrating tablet Return OB: Patient presents today for a routine obstetrics appointment. Patient is currently 35w1d . Patient states she is doing well but has complaints of being tired due to current . Patient complains of nausea starting up again and more consistent priscila krishnamurthy occurring. Patient has verbalizes frequent movement. labor precautions was discussed/given and patient was instructed to perform kick counts three times a day. Zofran was sent to pharmacy to help patent w/nausea. Orders Placed This Encounter Procedures POCT urinalysis dipstick manually resulted Follow Up: Patient is to return to office in 1 week for routine OB appointment. Documented by Mali Oglesby MA on behalf of: Rayne Henson NP documented in this encounter Plan of Treatment Upcoming Encounters Date Type Department Care Team (Late st Contact Info) Description 11/28/2024 1:00 PM EDT Ancillary Procedure [facility] [address] [facility] [place] [phone] 11/28/2024 1:50 PM EDT Routine [facility] [address] [facility] [place] [address] Sheba Walker PA [address] [facility] [address] [place], [place] [phone] documented as of this encounter Procedures Procedure Name Priority Date/Time Associated Diagnosis Comments POCT URINALYSIS DIPSTICK Routine 11/14/2024 9:56 AM EDT Third trimester ([facility]) documented in this encounter Results * POCT urinalysis dipstick manually resulted (11/14/2024 9:56 AM EDT) Color, UA Yellow Clarity, UA Clear Glucose, UA Negative Negative - 2000(110) ++++ mg/dL Bilirubin, UA Negative Negative - 4(70) +++ mg/dL Ketones, UA Negative Negative - 160(16) ++++ mg/dL Spec Grav, UA 1.015 1 - 1.03 Blood, UA Negative Negative - 50 Stephon/mcL pH, UA 7.0 5 - 9 Protein, UA Negative Negative - 2000(20) ++++ mg/dL Urobilinogen, UA 1.0 0.2 - 12 mg/dL Leukocytes, UA 3+ Negative - 500+++ Rafael/mcL Nitrite, UA Negative Negative - Positive Urine 11/14/2024 9:56 AM EDT Rayen Henson NP POINT OF CARE TEST ENTER/EDIT ORDERABLES Final Result documented in this encounter Visit Diagnoses Diagnosis Third trimester ([facility]) state, incidental 35 weeks gestation of ([facility]) H/O gestational diabetes in prior , currently ([facility]) Nausea and vomiting during ([facility]) documented in this encounter
--- OUTSIDE RECORDS SUMMARY | 2024-11-20 09:40 | XMS_ITS | Encounter Summary ---
Author Organization [facility] Address [address] [place] [address] Care Team Providers Care Potato Chip Maker Name Role Phone Unavailable Primary Care Provider Unavailabl e Reason for Visit * Reason Comments Routine Visit Encounter Details Date Type Department Care Team (Late st Contact Info) Description 11/20/2024 9:40 AM EDT Routine [facility] [address] [facility] [place] [phone] Solitario Tuttle DO [address] [facility] [address] [place], [facility] 36 weeks gestation of ([facility]); Third trimester ([facility]); H/O gestational diabetes in prior , currently ([facility]); Excessive growth affecting management of , antepartum, single or unspecified fetus ([facility]) Social History Tobacco Use Types Packs/Day Years [...] Sign Reading Time Taken Comments Blood Pressure 100/60 11/20/2024 9:57 AM EDT Pulse - - Temperature - - Respiratory Rate - - Oxygen Saturation - - Inhaled Oxygen Concentration - - Weight 95.4 kg (210 lb 6.4 oz) 11/20/2024 9:57 A M EDT Height - - Body Mass Index 36.12 05/03/2022 12:00 PM EST documented in this encounter Progress Notes * She Ochoaalley, BRAIN - 11/20/2024 9:40 AM EDT Reason for Appointment: Patient ID: Oneida Ochoa is a 24 y.o. female who presents for Routine Visit Patient presents today for Return OB appointment. MEDICATIONS Current Outpatient Medications Medication Instructions aspirin 81 mg, Daily 28-0.8 MG tablet Every 24 hours ALLERGIES No Known Allergies PROBLEMS Active Ambulatory Problems Diagnosis Date Noted No Active Ambulatory Problems Resolved Ambulatory Problems Diagnosis Date Noted No Resolved Ambulatory Problems No Additional Past Medical History HISTORY PAST MEDICAL HISTORY SOCIAL HISTORY History reviewed. No pertinent past medical history. Social History Tobacco Use Smoking status: Never [...] Constitutional: Appearance: Normal appearance. She is well-developed. Genitourinary: Vulva normal. Cardiovascular: Rate and Rhythm: Normal rate and [...] nursing note reviewed. Exam conducted with a form stripper present. Vitals: Estimated body mass index is 36.12 kg/m?? as calculated from the following: Height as of 05/03/22: 5' 4 . Weight as of this encounter: 210 lb 6.4 oz. BP: 100/60 Patient's last menstrual period was 03/19/2024. ASSESSMENT & PLAN ICD-10-CM 1. 36 weeks gestation of ([facility]) Z3A.36 POCT urinalysis dipstick manually resulted 2. Third trimester ([facility]) Z34.93 POCT urinalysis dipstick manually resulted CULTURE, GROUP B STREP WITH SUSCEPTIBLITY CULTURE, GROUP B STREP WITH SUSCEPTIBLITY 3. H/O gestational diabetes in prior , currently ([facility]) O09.299 Z86.32 4. Excessive growth affecting management of , antepartum, single or unspecified fetus ([facility]) O36.60X0 Patient is doing well but has complaints of being tired and having maternal discomfort due to . Patient verbalized frequent movement and was instructed to perform kick counts three times per day. labor precautions were given, LARC consent was signed/declined, and GBS was obtained. Cervical check was performed and patient is 1cm dilated. Orders Placed This Encounter Procedures CULTURE, GROUP B STREP WITH SUSCEPTIBLITY POCT urinalysis dipstick manually resulted Follow Up: Patient is to return to office in 1 week for routine OB appointment Documented by She Benito LPN on behalf of: Solitario Tuttle DO documented in this encounter Plan of Treatment Upcoming Encounters Date Type Department Care Team (Late st Contact Info) Description 11/28/2024 1:00 PM [place] [address] 11/28/2024 1:50 PM [place] [phone] Sheba Walker PA [address] [place] [address] [place] [address] Scheduled Orders Name Type Priority Associated Diagnoses Orde r Schedule CULTURE, GROUP B STREP WITH SUSCEPTIBLITY Lab Routine Third trimester ([facility]) Expected: 11/20/2024, Expires: 11/20/2025 OB follow up transabdominal approach Imaging Routine Excessive growth affecting management of , antepartum, single or unspecified fetus ([facility]) Expected: 11/20/2024, Expires: 03/22/2025 documented as of this encounter Procedures Procedure Name Priority Date/Time Associated Diagnosis Comments POCT URINALYSIS DIPSTICK Routine 11/20/2024 10:03 AM EDT 36 weeks gestation of ([facility]) Third trimester ([facility]) documented in this encounter Results * (ABNORMAL) POCT urinalysis dipstick manually resulted (11/20/2024 10:03 AM EDT) Color, UA Yellow Clarity, UA Clear Glucose, UA Negative Negative - 2000(110) ++++ mg/dL Bilirubin, UA Negative Negative - 4(70) +++ mg/dL Ketones, UA Negative Negative - 160(16) ++++ mg/dL Spec Grav, UA 1.015 1 - 1.03 Blood, UA Negative Negative - 50 Stephon/mcL pH, UA 6.5 5 - 9 Protein, UA Positive Negative - 2000(20) ++++ mg/dL Urobilinogen, UA 1.0 0.2 - 12 mg/dL Leukocytes, UA Positive Negative - 500+++ Rafael/mcL Comment:3+ Nitrite, UA Negative Negative - Positive Urine 11/20/2024 10:0 3 AM EDT Solitario Tuttle DO POINT OF CARE TEST ENTER/EDIT OR DERABLES Final Result documented in this encounter Visit Diagnoses Diagnosis 36 weeks gestation of ([facility]) Third trimester ([facility]) state, incidental H/O gestational diabetes in prior , currently ([facility]) Excessive growth affecting management of , antepartum, single or unspecified fetus ([facility]) documented in this encounter
--- OUTSIDE RECORDS SUMMARY | 2024-11-20 15:15 | XMS_ITS | Clinical Summary ---
Author Organization [facility] Address [address] [place] [address] Care Team Providers Care Roll Mill Operator Name Role Phone Unavailable Primary Care Provider Unavailabl e Allergies No known active allergies Medications 28-0.8 MG tablet 1 (one) time each day at the same time Active aspirin 81 MG EC tablet Take 81 mg by mouth Daily Active promethazine (Phenergan) 12.5 MG tabletIndications: , unspecified gestational age ([facility]),Nausea and vomiting during ([facility]) Take 1 tablet (12.5 mg) by mouth every 6 (six) hours if needed for nausea or vomiting for up to 30 doses Take 1 tablet by mouth every 6 hours as needed for nausea. 30 tablet 3 06/08/19 25 025 Discontinued iron polysaccharides (ProFe) 391.3 (180 Fe) MG capsule 1 capsule 1 (one) time each day at the same time 025 Discontinued venlafaxine (Effexor) 37.5 MG tablet 1 (one) time each day at the same time 05/03/19 23 025 Discontinued ondansetron ODT (Zofran-ODT) 4 MG disintegrating tabletIndications: Nausea and vomiting during ([facility]) Take 1 tablet (4 mg) by mouth every 6 (six) hours if needed for nausea or vomiting 30 tablet 2 11/15/19 25 025 Discontinued Encounters Date Type Department Care Team Description 11/20/2024 9:40 AM EDT Routine [facility] [place] [facility] [address] [place] [address] Solitario Tuttle, 36 weeks gestation of ([facility]); Third trimester ([facility]); H/O gestational diabetes in prior , currently ([facility]); Excessive growth affecting management of , antepartum, single or unspecified fetus ([facility]) 11/20/2024 Bamboo flowsheet [facility] [address] [place] [address] Solitario Tuttle, DO 11/14/2024 9:30 AM EDT Routine [facility] [place] [facility] [address] [place] [address] Rayne Henson, JASMINE Third trimester ([facility]); 35 weeks gestation of ([facility]); H/O gestational diabetes in prior , currently ([facility]); Nausea and vomiting during ([facility]) 11/14/2024 Bamboo flowsheet [facility] [address] [place] [address] Rayne Henson, JASMINE 11/10/2024 Clinisync Result Encounter [facility]OM[facility] External Department Unsolicited Solitario Tuttle, 11/09/2024 Travel 10/30/2024 11:30 AM EDT Routine [facility] [place] [facility] [address] [place] [address] Solitario Tuttle, Third trimester ([facility]); 33 weeks gestation of ([facility]) 10/30/2024 Bamboo flowsheet [facility] [place] [address] [place] [address] Solitario Tuttle, DO 10/24/2024 Travel 10/16/2024 1:40 PM EDT Routine [facility] [place] [facility] [place] [address] Solitario Tuttle DO Third trimester ([facility]); 31 weeks gestation of ([facility]) 10/16/2024 1:00 PM EDT Ancillary Procedure [facility] [place] [address] size inconsistent with dates ([facility]) 10/11/2024 Travel 10/02/2024 9:30 AM EDT Routine [facility] [place] [address] Sheba Walker PA Third trimester ([facility]); Screen for STD (sexually transmitted disease); size inconsistent with dates ([facility]) 10/02/2024 External Result Encounter [facility]OM[facility] External Department Unsolicited Sheba Walker PA 10/02/2024 Bamboo flowsheet [facility] [place] [address] Sheba Walker PA 09/26/2024 Travel 09/03/2024 9:50 AM EDT Routine [facility] [place] [place] [address] Solitario Tuttle DO Second trimester ([facility]); 24 weeks gestation of ([facility]); Diabetes mellitus screening 09/03/2024 9:00 AM EDT Ancillary Procedure SANT[facility] Pat[facility] [place] [place] [address] Encounter for follow-up ultrasound of anatomy ([facility]) 09/03/2024 Clinisync Result Encounter NOMS External Department [...] oz) 11/20/2024 9:57 A M EDT Height 162.6 cm (5' 4 ) 05/03/2022 12:00 PM EST Body Mass Index 36.12 05/03/2022 12:00 PM EST Plan of Treatment Upcoming Encounters Date Type Department Care Team (Late st Contact Info) Description 11/28/2024 1:00 PM EDT Ancillary Procedure [facility] [address] [place] [address] 11/28/2024 1:50 PM EDT Routine [facility] [address] [facility] [place] [place] [address] Sheba Walker PA [address] [place] [address] Procedures Procedure Name Priority Date/Time Associated Diagnosis Comments POCT URINALYSIS DIPSTICK Routine 11/20/2024 10:03 AM EDT 36 weeks gestation of ([facility]) Third trimester ([facility]) POCT URINALYSIS DIPSTICK Routine 11/14/2024 9:56 AM EDT Third trimester ([facility]) TBH URINE MICROSCOPIC ONLY Routine 11/10/2024 3:36 PM EDT TBH UA (CLEAN/CATCH) WIND TURBINE BLADE REPAIR TECHNICIAN/MICRO IF IND. Routine 11/10/2024 3:36 PM EDT POCT URINALYSIS DIPSTICK Routine 10/30/2024 12:05 PM EDT Third trimester ([facility]) POCT URINALYSIS DIPSTICK Routine 10/16/2024 1:37 PM EDT Third trimester ([facility]) US OB FOLLOW UP TRANSABDOMINAL APPROACH Routine 10/16/2024 1:20 PM EDT size inconsistent with dates ([facility]) RECURRENT VAGINITIS (HTRX) Routine 10/02/2024 12:13 PM EDT POCT URINALYSIS DIPSTICK Routine 10/02/2024 9:53 AM EDT Third trimester ([facility]) AFP, SERUM, OPEN SPINA BIFIDA Routine 09/03/2024 12:06 PM EDT GLUCOSE 1 HOUR Routine 09/03/2024 12:06 PM EDT ALL CBC WITH AUTO DIFF Routine 12:02 PM EDT POCT URINALYSIS DIPSTICK Routine 09/03/2024 10:17 AM EDT Second trimester ([facility]) US OB LIMITED 1+ FETUSES Routine 09/03/2024 9:23 AM EDT Encounter for follow-up ultrasound of anatomy ([facility]) from Last 3 Months Results * (ABNORMAL) POCT urinalysis dipstick manually resulted (11/20/2024 10:03 AM EDT) Only the most recent of6 resultswithin the time period is included. Color, [...] Urine 11/20/2024 10:0 3 AM EDT Solitario Parag DO POINT OF CARE TEST ENTER/EDIT OR DERABLES Final Result * (ABNORMAL) TBH URINE MICROSCOPIC ONLY (11/10/2024 3:36 PM EDT) TBH WBC 2-5(A) NONE SEEN #/HPF TBH TBH RBC 0-2 0 - 2 #/HPF TBH BACTERIA URINE TRACE(A) NONE SEEN #/HPF TBH MUCUS URINE NONE SEEN NONE SEEN TBH SQUAMOUS EPITHELIAL CELL URINE FEW(A) NONE/RARE #/LPF TBH CRYSTALS SEEN? None Seen None Seen #/HPF TBH CAST SEEN? NONE SEEN NONE SEEN #/LPF TBH URINE CULTURE INDICATED NO TBH 11/10/2024 3:36 PM EDT 11/10/2024 4:00 PM EDT Narrative CLINISYNC - 11/10/2024 4:23 PM EDT Solitario Parag DO CLINISYNC Final Result CLINISYNC TBH * (ABNORMAL) TBH UA (CLEAN/CATCH) WIND TURBINE BLADE REPAIR TECHNICIAN/MICRO IF IND. (11/10/2024 3:36 PM EDT) COLOR URINE LT. YELLOW YELLOW TBH CLARITY URINE CLEAR CLEAR TBH SPECIFIC GRAVITY URINE 1.010 1.005 - 1.025 TBH PH URINE 6.5 5.0 - 9.0 TBH PROTEIN URINE NEGATIVE NEG/TRACE mg/dL TBH GLUCOSE URINE UA NEGATIVE NEGATIVE mg/dL TBH BILIRUBIN URINE NEGATIVE NEGATIVE TBH KETONES URINE NEGATIVE NEGATIVE mg/dL TBH BLOOD URINE NEGATIVE NEGATIVE TBH NITRITE URINE NEGATIVE NEGATIVE TBH UROBILINOGEN URINE 0.2 0.2 - 1.0 EU/dL TBH LEUKOCYTE ESTERASE URINE SMALL(A) NEGATIVE TBH URINE MICROSCOPIC INDICATED YES TBH 11/10/2024 3:36 PM EDT 11/10/2024 4:00 PM EDT Narrative LINDA - 11/10/2024 4:23 PM EDT us Solitario Parag DO CLINISYNC Final Result LINDA TB * US OB follow up transabdominal approach [...] BY: ELECTRONICALLY SIGNED BY: Tomer Dowell MD us Sheba JESSICA IMG OB US PROCEDURES Final Resul t * RECURRENT VAGINITIS (HTRX) (10/02/2024 12:13 PM EDT) [facility] ATOPOBIUM VAGINAE 0 19.961 - 24.689 ppm 10/03/2024 5:58 AM EDT [facility] ATOPOBIUM VAGINAE Not Detected 19.961 - 24.689 ppm 10/03/2024 5:58 AM EDT [facility] BVAB 2,3 (BACTERIAL VAGINOSIS ASSOCIATED BACTERIA 2, 3); MOBILUNCUS SPP 0 19.961 - 24.689 ppm 10/03/2024 5:58 AM EDT [facility] BVAB 2,3 (BACTERIAL VAGINOSIS ASSOCIATED BACTERIA 2, 3); MOBILUNCUS SPP Not Detected 19.961 - 24.689 ppm 10/03/2024 5:58 AM EDT [facility] ALPHONSE ALBICANS, PARAPSILOSIS, TROPICALIS 0 19.961 - 30.770 ppm 10/03/2024 5:58 AM EDT [facility] ALPHONSE ALBICANS, PARAPSILOSIS, TROPICALIS Not Detected 19.961 - 30.770 ppm 10/03/2024 5:58 AM EDT [facility] ALPHONSE GLABRATA 0 23.000 - 32.138 ppm 10/03/2024 5:58 AM EDT [facility] ALPHONSE GLABRATA Not Detected 23.000 - 32.138 ppm 10/03/2024 5:58 AM EDT [facility] ALPHONSE KRUSEI 0 23.000 - 32.271 ppm 10/03/2024 5:58 AM EDT [facility] ALPHONSE KRUSEI Not Detected 23.000 - 32.271 ppm 10/03/2024 5:58 AM EDT [facility] CHLAMYDIA TRACHOMATIS 0 23.000 - 31.467 ppm 10/03/2024 5:58 AM EDT [facility] CHLAMYDIA TRACHOMATIS Not Detected 23.000 - 31.467 ppm 10/03/2024 5:58 AM EDT [facility] GARDNERELLA VAGINALIS 0 19.961 - 24.689 ppm 10/03/2024 5:58 AM EDT [facility] GARDNERELLA VAGINALIS Not Detected 19.961 - 24.689 ppm 10/03/2024 5:58 AM EDT [facility] MEGASPHAERA (TYPES 1, 2) 0 19.961 - 24.689 ppm 10/03/2024 5:58 AM EDT [facility] MEGASPHAERA (TYPES 1, 2) Not Detected 19.961 - 24.689 ppm 10/03/2024 5:58 AM EDT [facility] NEISSERIA GONORRHOEAE 0 23.000 - 32.117 ppm 10/03/2024 5:58 AM EDT [facility] NEISSERIA GONORRHOEAE Not Detected 23.000 - 32.117 ppm 10/03/2024 5:58 AM EDT [facility] TRICHOMONAS VAGINALIS 0 23.000 - 32.119 ppm 10/03/2024 5:58 AM EDT [facility] TRICHOMONAS VAGINALIS Not Detected 23.000 - 32.119 ppm 10/03/2024 5:58 AM EDT [facility] MYCOPLASMA GENITALIUM 0 19.961 - 24.689 ppm 10/03/2024 5:58 AM EDT [facility] MYCOPLASMA GENITALIUM Not Detected 19.961 - 24.689 ppm 10/03/2024 5:58 AM EDT [facility] Tissue 10/02/2024 12:1 3 PM EDT 10/03/2024 1:32 AM EDT Sheba JESSICA LAB BLOOD ORDERABLES Final Resul t Performing Organization Address [facility]/ZIP Co de Phone Number [facility] [address] [place] [address] * GLUCOSE 1 HOUR (09/03/2024 12:06 PM EDT) GLUCOSE 1 HOUR 112 <130 mg/dL [facility] 09/03/2024 12:0 6 PM EDT 09/03/2024 12:48 PM EDT Narrative CLINISYNC - 09/03/2024 12:50 PM EDT Solitario Tuttle DO LAB BLOOD ORDERABLES Final Resul t Performing Organization Address [facility] Co de Phone Number CLINISYNC [facility] * AFP, SERUM, OPEN SPINA BIFIDA (09/03/2024 12:06 PM EDT) RESULTS Report . [facility] TEST RESULTS: *Screen Negative* . [facility] GEST. AGE ON COLLECTION DATE 20.3 . weeks [facility] GESTAT. AGE BASED ON As provided . [facility] Comment: Recalculations are not recommended when gestational dating by LMP and ultrasound are within 10 days. [age] [facility] RACE . [facility] WEIGHT 185 . lbs [facility] INSULIN DEP DIABETES No . [facility] MULTIPLE GESTATION No . [facility] AFP VALUE 94.9 . ng/mL [facility] AFP MOM 1.84 . [facility] OSBR RISK 1 IN 1162 . [facility] INTERPRETATION Comment . [facility] Comment: Interpretation: Screen Negative This result [...] Customer Services to discuss available options. The [employer] recommends amniocentesis be offered to women age 35 and older. COMMENT: Comment . [facility] Comment: Donna Perez, Ph.D., [facility] Director References: Available Upon Request. Multiples Of Median Cutoffs For AFP Elevations Majano 2.5 Black 2.8 IDD 2.0 Twins 4.5 Abbreviation Definitions IDD - Insulin Dep Diabetes OSBR - Open Spina Bifida Risk For further inquiries contact [facility] at [phone]. This test was developed and its performance characteristics determined by [facility]. It has not been cleared or approved by the Food and Drug Administration. Performed at: [facility] [address] [id number] Commercial Plumber: Ablert [facility], Phone: [phone] 09/03/2024 12:0 6 PM EDT 09/03/2024 12:48 PM EDT Narrative CLINISYNC - 09/05/2024 1:07 AM EDT N N ULTRASOUND [id number] 2 20 N 1 [address] N White/ Rayne Henson LOAN CLERK LAB BLOOD ORDERABLES Final Re sult [facility] * (ABNORMAL) ALL CBC WITH AUTO DIFF [...] - 09/03/2024 12:16 PM EDT us Solitario Tuttle DO CLINISYNC Final Result CLINISYNC TB * US OB limited 1+ fetuses (09/03/2024 [...] II, MD, PHD at 04-Sep-2024 11:31:40 PM [facility] Procedure Note Candy Verma MD - [...] anatomysurvey. Interpreted by: Electronically signed by CANDY VERAM II, MD, PHD [id number] 11:31:40 PM [facility] us Solitario Tuttle DO IMG OB US PROCEDURES Final Resul t from Last 3 [place] [address] [employer]
--- OUTSIDE RECORDS SUMMARY | 2024-11-20 15:15 | XMS_ITS | Encounter Summary ---
Author Organization [facility] Address [address] [place] [address] Care Team Providers Care Sales Representative Business Courses Name Role Phone Unavailable Primary Care Provider [...] 11/28/2024 1:00 PM EDT Ancillary Procedure [facility] [address] [place] [address] 11/28/2024 1:50 PM EDT Routine [facility] [address] [place] [address] Sheba Walker PA [address] [place], [place] [address] documented as of this encounter Visit Diagnoses Not on filedocumented in this encounter
--- OUTSIDE RECORDS SUMMARY | 2024-11-20 15:15 | XMS_ITS | Encounter Summary ---
Author Organization [facility] Address [address] [place] [address] Care Team Providers Care Defect Cutter Name Role Phone Unavailable Primary Care Provider Unavailabl e Encounter Details Date Type Department Care Team (Late st Contact Info) Description 11/10/2024 Clinisync Result Encounter NOMS External Department Unsolicited Solitario Tuttle DO [address] [place] [place], [place] [id number] Social History Tobacco Use Types Packs/Day Years [...] Description 11/28/2024 1:00 PM EDT Ancillary Procedure [facility] [place] [address] 11/28/2024 1:50 PM EDT Routine [facility] [address] [place] [address] Sheba Walker PA [address] [place] [address] [place] [address] documented as of this encounter Procedures Procedure Name Priority Date/Time Associated Diagnosis Comments TBH URINE MICROSCOPIC ONLY Routine 11/10/2024 3:36 PM EDT TBH UA (CLEAN/CATCH) SERVICE CLEANER/MICRO IF IND. Routine 11/10/2024 3:36 PM EDT documented in this encounter Results * (ABNORMAL) TBH URINE MICROSCOPIC ONLY (11/10/2024 [...] Narrative CLINISYNC - 11/10/2024 4:23 PM EDT us Solitario Parag DO CLINISYNC Final Result CLINISYNC [facility] * (ABNORMAL) TBH UA (CLEAN/CATCH) SERVICE CLEANER/MICRO IF IND. (11/10/2024 3:36 PM EDT) COLOR [...] Narrative CLINISYNC - 11/10/2024 4:23 PM EDT us Solitario Parag DO CLINISYNC Final Result CLINISYOH TB documented in this encounter Visit Diagnoses Not on filedocumented in this encounter
--- OUTSIDE RECORDS SUMMARY | 2024-11-20 15:16 | XMS_ITS | Patient Health Record ---
Author Organization [facility] C Address [address] [place] [address] Care Team Providers Care Granite Cutter Apprentice Name Role Phone GENOVEVA RANDALLEN Primary Care Provider Unavailabl e Allergies No Known Allergies Reason For Referral No Information Medications Medication SIG (Take, Route, Frequency, Duration) Notes Start Date End Date Status 1.5-30 MG-MCG 1 tablet Orally Once a day A ctive Immunizations Vaccine Route Administration Date Status Comme nts [id number] Quad PFS (0.5mL Admin) 16 y/o & [...] Notes Problem Gestation less than 9 weeks (514100701) Less than 8 weeks gestation of (Z3A.01) Active confirmed Problem Nausea (020552665) Nausea (R11.0) Active confirmed Problem Mixed anxiety and depressive disorder (695731416) Anxiety and depression (F41.8) Active confirmed Problem Tobacco user (488296904) Other tobacco product nicotine dependence, uncomplicated (F17.290) Active confirmed Plan Of Treatment No Information Insurance Providers Payer Name Payer Address Payer Phone Subscriber Number Group Number Insured Name Patient Relationship to Insured Coverage Start Date Coverage End Date [employer] [place] [address] [place] [address] [id number] Oneida Ochoa Self - patient is the insured Medical (General) History Medical History History ICD Code Anxiety and depression F41.8 History of UTI Z87.440 Surgical History Surgery Date(Month/Year) wisdom teeth Hospitalization History Reason Date(Month/Year) childbirth
--- OUTSIDE RECORDS SUMMARY | 2024-11-20 15:16 | XMS_ITS | Encounter Summary ---
Author Organization [facility] Address [address] [place] [address] Care Team Providers Care Criminal Analyst Name Role Phone Unavailable Primary Care Provider Unavailabl e Encounter Details Date Type Department Care Team (Late st Contact Info) Description 11/14/2024 Bamboo flowsheet [facility] [address] [place] [address] Rayne Henson, CINDER WORKER [address] [place] [address] Social History Tobacco Use Types Packs/Day Years [...] EDT Ancillary Procedure [facility] [address] [place] [address] 11/28/2024 1:50 PM EDT Routine [facility] [address] [facility] [place] [address] Sheba Walker PA [address] [facility] [place] [address] documented as of this encounter Visit Diagnoses Not on filedocumented in this encounter
--- OUTSIDE RECORDS SUMMARY | 2024-11-20 15:16 | XMS_ITS | Encounter Summary ---
Author Organization [facility] Address [address] [place] [address] Care Team Providers Care Solder Leveler Printed Circuit Boards Name Role Phone Unavailable Primary Care Provider Unavailabl e Encounter Details Date Type Department Care Team (Late Contact Info) Description 11/20/2024 Bamboo flowsheet [facility] [address] [place] [address] Solitario Tuttle DO [address] [facility] [address] [place], [facility] Social History Tobacco Use Types Packs/Day [...] Department Care Team (Late Contact Info) Description 11/28/2024 1:00 PM EDT Ancillary Procedure [facility] [address] [place] [address] 11/28/2024 1:50 PM EDT Routine [facility] [address] [facility] [place] [address] Sheba Walker PA [address] [facility] [place] [address] documented as of this encounter Visit Diagnoses Not on filedocumented in this encounter
--- OUTSIDE RECORDS SUMMARY | 2024-11-20 15:16 | XMS_ITS | Encounter Summary ---
Author Organization [facility] Address [address] [place] [address] Care Team Providers Care Supervisor Ore Dressing Name Role Phone Unavailable Primary Care Provider Unavailabl e Encounter Details Date Type Department Care Team (Late Contact Info) Description 06/13/2024 Abstract [facility] [address] [place] [address] Solitario Tuttle DO [address] [facility] [address] [place], [place] [phone] Social History Tobacco Use Types Packs/Day Years [...] 11/28/2024 1:00 PM EDT Ancillary Procedure [facility] LE[facility] [address] [place] [address] 11/28/2024 1:50 PM EDT Routine [facility] [address] [facility] [place] [address] Sheba Walker PA [address] [facility] [place] [address] documented as of this encounter Visit Diagnoses Not on filedocumented in this encounter
--- OUTSIDE RECORDS SUMMARY | 2024-11-20 15:16 | XMS_ITS | Encounter Summary ---
Author Organization [facility] Address [address] [place] [address] Care Team Providers Care Bariatric Nurse Name Role Phone Unavailable Primary Care Provider Unavailabl e Encounter Details Date Type Department Care Team (Late Contact Info) Description 10/24/2022 Abstract [facility] [address] [place] [address] Solitario Ttutle DO [address] [facility] [address] [place], [facility]11 Social History Tobacco Use Types Packs/Day Years [...] Ancillary Procedure [facility] LE[facility] [address] [place] [address] 11/28/2024 1:50 PM EDT Routine [facility] [address] [place] [address] Sheba Walker PA [address] [facility] [place] [address] documented as of this encounter Visit Diagnoses Not on filedocumented in this encounter
--- OUTSIDE RECORDS SUMMARY | 2024-11-20 15:16 | XMS_ITS | Encounter Summary ---
Author Organization [facility] Address [address] [place] [address] Care Team Providers Care Container Packer Operator Name Role Phone Unavailable Primary Care Provider Unavailabl e Encounter Details Date Type Department Care Team (Late Contact Info) Description 06/28/2024 Abstract [facility] [address] [place] [address] Solitario Tuttle DO [address] [facility] [address] [place], [facility]11 Social [...] Ancillary Procedure [facility] LE[facility]G [address] [place] [address] 11/28/2024 1:50 PM EDT Routine SANTY LE[facility]G [address] [place] [address] Sheba Walker PA [address] [facility] [place] [address] documented as of this encounter Visit Diagnoses Not on filedocumented in this encounter
--- OUTSIDE RECORDS SUMMARY | 2024-11-20 15:16 | XMS_ITS | Patient Health Record ---
Author Organization [facility] . Address [address], [place] [address] Care Team Providers Care Commercial Drone Pilot Name Role Phone Marti Greene APRN Primary [...] Status Risk Notes Problem Generalized anxiety disorder (01662951) Generalized anxiety disorder (F41.1) 8 Active confirmed Problem Moderate major depression, single episode (83715839) Current moderate episode of major depressive disorder without prior episode (F32.1) 8 Active confirmed Problem Constipation (04496234) Constipation (K59.00) 9 Active confirmed Plan Of Treatment No Information Insurance Providers Payer Name Payer Address Payer Phone Subscriber Number Group Number Insured Name Patient Relationship to Insured Coverage Start Date Coverage End Date Umr [address] [address] [place] [address] [id number] Miles Ochoa Other [employer] [address] [place] [address] [id number] Abram Landaverde Other [employer] [address] [place] [address] [id number] Miles Ochoa Other [facility] [address] [address] [place] [address] [id number] Miles Ochoa Other Medications Administered Medication Instructions Date of Administration Dosage Notes PPD 02/08/2014
--- OUTSIDE RECORDS SUMMARY | 2024-11-20 15:16 | XMS_ITS ---
Author Organization [facility] Source Produ ction (ClinicalSummary Clone) Address Unknown Care Team Providers Care Branch Lead Name Role Phone Unavailable Primary Care Physician Unavailab le Results * [UNITY] ANEUPLOIDY NIPT Performed by: [facility] Value Range Date Fraction 12.6% 06/13/2024 06 :15 am UTC Rh(D) NIPT RhD NOT DETECTED 06/13/2024 06:15 am UTC Sex Chromosome Aneuploidy NOT DETECTED 06:15 am UTC Monosomy X LOW RISK <1 in 10,000 2024 06:15 am UTC Trisomy 13 LOW RISK <1 in 10,000 2024 06:15 am UTC Trisomy 18 LOW RISK <1 in 10,000 2024 06:15 am UTC Trisomy 21 LOW RISK <1 in 10,000 2024 06:15 am UTC Sex MALE 06/13/2024 06:1 5 am UTC Gestation RDZ 06/14/19 06:15 am UTC For detailed report, see PDF See PDF 06/13/2024 06:15 am UTC 06/13/2024 06:1 5 am UTC Social History Observation Value Start Date End Date
== END 2024-11-20 15:14 | disposition home or self-care (01) ==
LOC: LAB 15:13
PROVIDERS: Visit Provider Obstetrics & Gynecology
DX: Z34.93 Encounter for supervision of normal pregnancy, unspecified, third trimester (principal); Z3A.36 36 weeks gestation of pregnancy
CPT/HCPCS: 87081

== ENCOUNTER 2024-12-10 18:32 | Inpatient (IN) | payer OTHER, SELFPAY ==
[2024-12-10] MEDS: MISOPROSTOL 100 MCG TABLET 25 MCG VAGINAL ×2 (20:26→23:30)
[2024-12-10] MEDS: AMPICILLIN SODIUM 2,000 MG in 0.9 % SODIUM CHLORIDE 100 ML 200 MG IV (20:26)
[2024-12-10 20:34] VITALS: BP 120/77; PULSE 97
[2024-12-10 20:42] LABS: Hematocrit 30.0 % (36.0-48.0); Hemoglobin 10.4 g/dL (12.0-16.0); Mean Corpuscular HGB Conc 34.7 g/dL (29.9-35.2); Mean Corpuscular Hemoglobin 31.5 pg (26.7-34.0); Mean Corpuscular Volume 90.9 fL (81.0-99.0); Platelet Count 206 10^3/uL (150-450); Red Blood Count 3.30 10^6/uL (4.20-5.40); White Blood Count 14.0 10^3/uL (4.0-11.0)
[2024-12-10 20:49] VITALS: BP 105/64; PULSE 83
[2024-12-10 21:00] LABS: Cannabinoid Screen Urine NEGATIVE (NEGATIVE); Methamphetamines Screen Urine NEGATIVE (NEGATIVE); Tricyclic Antidepressant Urine NEGATIVE (NEGATIVE)
[2024-12-10 21:04] VITALS: BP 105/60; PULSE 89
[2024-12-10 22:18] VITALS: BP 98/59; PULSE 79
[2024-12-10 23:19] VITALS: BP 100/58; PULSE 87
[2024-12-11] VITALS (42 sets, daily range): BP systolic 90–123; BP diastolic 50–78; PULSE 68–107; TEMP 36.6–37.1
[2024-12-11] MEDS: AMPICILLIN SODIUM 1,000 MG in 0.9 % SODIUM CHLORIDE 50 ML 100 MG IV ×3 (00:16→10:34)
[2024-12-11] MEDS: 0.9 % SODIUM CHLORIDE 1,000 ML 125 ML IV ×2 (02:51→07:42)
[2024-12-11] MEDS: OXYTOCIN/0.9 % SODIUM CHLORIDE 10 UNITS/500 ML PLAST..BAG 6 UNIT IV (06:56)
[2024-12-11] MEDS: 0.9 % SODIUM CHLORIDE 1,000 ML 1000 ML IV (09:42)
[2024-12-11] MEDS: ROPIVACAINE HCL/PF 400 MG/200 ML PREMIX 6 MG EPIDURAL (09:53)
[2024-12-11] MEDS: OXYTOCIN/0.9 % SODIUM CHLORIDE 20 UNITS/1,000 ML PLAST..BAG 125 UNIT IV (11:26)
--- NOTE | 2024-12-11 11:37 | PM.OBPRCVD ---
Procedure Intrapartal events: None Induction method: per misoprostol protocol Delivery augmentation: rupture of membranes and pitocin Delivery monitor: external FHT and external uterine Route of delivery: L&D Laceration Description: perineal - 2nd degree Delivery repair: Vicryl Estimated blood loss (mL): 250 Anesthesia type: Epidural Disposition: floor Delivery date: 12/11/24 Gender: male presentation: vertex Placental delivery description: Spontaneous cord description: 3 Vessels
[2024-12-11] MEDS: BENZOCAINE/MENTHOL 85 GRAM SPRAY BOTTLE 1 APPLIC TOPICAL (15:30)
[2024-12-11] MEDS: GLYCERIN/WITCH HAZEL PADS 1 PAD TOPICAL (15:30)
[2024-12-11] MEDS: IBUPROFEN 600 MG TABLET PO ×2 (15:30→22:05)
[2024-12-11] MEDS: ACETAMINOPHEN 325 MG TABLET 650 MG PO (20:35)
[2024-12-12] MEDS: IBUPROFEN 600 MG TABLET PO ×2 (05:37→12:42)
[2024-12-12 06:24] LABS: Hematocrit 29.9 % (36.0-48.0); Hemoglobin 10.3 g/dL (12.0-16.0); Immature Granulocytes Abs Auto 0.39 10^3/uL (0.00-0.03); Immature Granulocytes Pct Auto 2.2 % (0.0-0.5); Lymphocytes Absolute Auto 3.0 10^3/uL (1.2-3.8); Mean Corpuscular HGB Conc 34.4 g/dL (29.9-35.2); Mean Corpuscular Hemoglobin 32.0 pg (26.7-34.0); Mean Corpuscular Volume 92.9 fL (81.0-99.0); Platelet Count 204 10^3/uL (150-450); Red Blood Count 3.22 10^6/uL (4.20-5.40); White Blood Count 17.4 10^3/uL (4.0-11.0)
[2024-12-12 08:30] VITALS: BP 111/66; PULSE 83; TEMP 36.8
[2024-12-12] MEDS: DOCUSATE SODIUM 100 MG CAPSULE PO (08:33)
--- NOTE | 2024-12-12 11:21 | PC.NURSE ---
Pt declines full review of teaching. Feels confident in ability to care for self and NB. Undecided if will pump for milk or just formula feed. Will decide once home. Given information on drying up supply and formula feeding. Declined follow up at this time. Aware to call as needed.
--- NOTE | 2024-12-12 12:04 | PM.OBDS ---
DS: Providers Provider Date of admission: 12/10/24 18:32 Primary care physician: Non-Staff Physician, Admitting clinician: Solitario Tuttle Attending physician on admission: Solitario Tuttle Consults: 12/10/24 Consult to Anesthesiology Routine Consulting Provider: Solitario Tuttle Reason for consultation: epidural Attending physician on discharge: MIGUEL QUIÑONEZ Discharging clinician: MIGUEL QUIÑONEZ Anticipated date of discharge: 12/12/24 DS: Diagnosis Discharge Diagnosis (1) Spontaneous vaginal delivery: Assessment and plan: doing well (2) iron deficiency anemia: Assessment and plan: ferrous sulfate bid for a month OB - DS: Summary Hospital Course Hospital Course: She was admitted and given misoprostol and delivered over a second degree laceration which was repaired a 7 lb 12 oz male with Apgars of 9 and 9 at 1 and 5 minutes. She is bottle feeding. Peripartum Data - Vaginal Delivery Laceration description: perineal - 2nd degree Episiotomy Description: none Complications complications: none Delivery method: spontaneous vaginal delivery Gender: male Discharge plan: home Status at Discharge Cognitive/behavioral status at discharge: stable Functional status at discharge: independent ambulation Overall status at discharge: patient is progressing back to baseline Time Spent with Patient Time attestation: Total time spent providing and/or coordinating discharge services: Time spent: less than 30 minutes Exam Constitutional Vital Signs, click to edit/add: Last Vital Signs Temp 98.2 F 12/12/24 08:30 Pulse 83 12/12/24 08:30 Resp 16 12/12/24 08:30 BP 111/66 12/12/24 08:30 O2 Del Method Room Air 12/12/24 08:30 Documenting provider has reviewed patient's vital signs: yes Common normals: no apparent distress and oriented x3 General appearance: cooperative and well developed Orientation/consciousness: Yes awake HENMT Common normals: normocephalic Eye Common normals: EOMs intact bilaterally Neck & C-Spine Common normals: full ROM Respiratory Common normals: normal respiratory effort Cardio Common normals: regular rate GI Common normals: Normal to inspection, nondistended, normoactive bowel sounds present Palpation: soft Other: fundus firm below umbilicus Back & Pelvis Common normals: no CVA tenderness Extremity General: edema (1+ bilateral) Neuro Common normals: oriented x3 Sensorium/orientation: oriented to person, oriented to place and oriented to time Psych Common normals: thought process normal, cooperative, affect normal and speech normal DS: Data Data Completed and Pending Labs on day of discharge: Labs from last 24 hours 12/12/24 06:12 WBC 17.4 H RBC 3.22 L Hgb 10.3 L Hct 29.9 L MCV 92.9 MCH 32.0 MCHC 34.4 RDW 14.5 Plt Count 204 MPV 9.5 Neut % (Auto) 73.0 Lymph % (Auto) 17.2 L Wallace % (Auto) 7.1 Eos % (Auto) 0.3 L Baso % (Auto) 0.2 Neut # (Auto) 12.6 H Lymph # (Auto) 3.0 Wallace # (Auto) 1.2 H Eos # (Auto) 0.1 Baso # (Auto) 0.0 Abs Immat Gran (auto) 0.39 H Imm/Tot Granulo (auto) 2.2 H Discharge Plan Discharge Disposition: Home, Self-Care Condition: Good Discharge Medications: New ferrous sulfate 325 mg (65 mg iron) Tablet 325 mg PO BID Qty: 60 0RF ibuprofen 600 mg Tablet 600 mg PO Q6H PRN (Reason: Moderate Pain) Qty: 30 0RF Activity: resume usual activities as tolerated Diet: regular diet Print Language: Central African Forms: Vaginal Delivery - Discharge, Portal Instructions Follow Up Appointments: Dr. Mikaela Tuttle
== END 2024-12-12 13:35 | disposition home or self-care (01) | DRG 807 ==
PROVIDERS: Admitting Provider Obstetrics & Gynecology; Visit Provider Obstetrics & Gynecology
DX: O99.824 Streptococcus B carrier state complicating childbirth (principal); Z37.0 Single live birth; O26.893 Other specified pregnancy related conditions, third trimester; O70.1 Second degree perineal laceration during delivery; Z3A.39 39 weeks gestation of pregnancy; O90.81 Anemia of the puerperium; D50.9 Iron deficiency anemia, unspecified; Z67.11 Type A blood, Rh negative; O99.334 Smoking (tobacco) complicating childbirth; F17.290 Nicotine dependence, other tobacco product, uncomplicated
CPT/HCPCS: 36415; 59050; 59410; 80307; 85025; 85027; 86850; 86900; 86901; J0290; J0665; J2300; J2795

== ENCOUNTER 2025-01-01 08:01 | Outpatient (OUT) | payer SELFPAY ==
--- OUTSIDE RECORDS SUMMARY | 2025-01-01 08:05 | XMS_ITS | Encounter Summary ---
Author Organization [facility] Address [address] [place] [address] Care Team Providers Care Optometry Doctor Name Role Phone Unavailable Primary Care Provider Unavailabl e Encounter Details Date Type Department Care Team (Late st Contact Info) Description 06/07/2024 Abstract [facility] [address] [place] [address] Solitario Tuttle DO [address] [facility] [place] [address] Social History Tobacco Use Types Packs/Day [...] Care Team (Late st Contact Info) Description 01/23/2025 8:30 AM EDT Visit [facility] [address] [facility] [place] [address] Rayne Henson NP [address] [place] [phone] documented as of this encounter Visit Diagnoses Not on filedocumented in this encounter
--- OUTSIDE RECORDS SUMMARY | 2025-01-01 08:05 | XMS_ITS | Encounter Summary ---
Author Organization [facility] Address [address] [place] [address] Care Team Providers Care Egg Candler Name Role Phone Unavailable Primary Care Provider Unavailabl e Encounter Details Date Type Department Care Team (Late Contact Info) Description 12/28/2024 Abstract [facility] [address] [place] [address] Solitario Tuttle DO [address] [facility] [address] [place], [place] [phone] Social History Tobacco Use Types Packs/Day Years [...] 8:30 AM EDT Visit [facility] [address] [facility] [place] [address] Rayne Henson NP [address] [place] [phone] documented as of this encounter Visit Diagnoses Not on filedocumented in this encounter
--- OUTSIDE RECORDS SUMMARY | 2025-01-01 08:05 | XMS_ITS | Encounter Summary ---
Author Organization [facility] Address [address] [place] [address] Care Team Providers Care Department Of Mathematics Chair Name Role Phone Unavailable Primary Care Provider Unavailabl e Encounter Details Date Type Department Care Team (Late Contact Info) Description 12/11/2024 Abstract [facility] [address] [place] [address] Solitario Tuttle DO [address] [facility] [place] [address] Social History Tobacco Use Types Packs/Day [...] 8:30 AM EDT Visit [facility] [address] [facility] [place] [address] Rayne Henson NP [address] [place] [phone] documented as of this encounter Visit Diagnoses Not on filedocumented in this encounter
--- OUTSIDE RECORDS SUMMARY | 2025-01-01 08:06 | XMS_ITS | Encounter Summary ---
Author Organization [facility] Address [address] [place] [address] Care Team Providers Care Tennis Director Name Role Phone Unavailable Primary Care Provider Unavailabl e Encounter Details Date Type Department Care Team (Late st Contact Info) Description 12/06/2024 Abstract [facility] [address] [place] [address] Solitario Tuttle DO [address] [facility] [address] [place], [place] [phone] Social History Tobacco Use Types Packs/Day Years [...] 8:30 AM EDT Visit [facility] [address] [facility] [place] [address] Rayne Henson NP [address] [place] [phone] documented as of this encounter Visit Diagnoses Not on filedocumented in this encounter
--- OUTSIDE RECORDS SUMMARY | 2025-01-01 08:06 | XMS_ITS | Clinical Summary ---
Author Organization [facility] Address [address] [place] [address] Care Team Providers Care Wheel Roller Name Role Phone Unavailable Primary Care Provider Unavailabl e Allergies No known active allergies Medications 28-0.8 MG tablet 1 (one) time each day at the same time Active aspirin 81 MG EC tablet Take 81 mg by mouth Daily Active Encounters Date Type Department Care Team Description 12/28/2024 [place] [address] Solitario Tuttle, DO 12/12/2024 Clinisync Result Encounter [facility] External Department Unsolicited Solitario Tuttle, DO 12/11/2024 Abstract [facility] [address] [place] [address] Solitario Tuttle, DO 12/10/2024 Clinisync Result Encounter [facility] External Department Unsolicited Solitario Tuttle, DO 12/06/2024 Abstract [facility] [address] [place] [address] Solitario Tuttle, DO 12/05/2024 2:20 PM [place] [address] Solitario Tuttle, DO 38 weeks gestation of ([facility]); Third trimester ([facility]); H/O gestational diabetes in prior , currently ([facility]); Excessive growth affecting management of , antepartum, single or unspecified fetus ([facility]) 12/05/2024 Bamboo flowsheet [facility] [address] [place] [phone] Solitario Tuttle, 12/04/2024 Travel 11/28/2024 1:50 PM EDT Routine [facility] [address] [place] [phone] Sheba Walker PA Third trimester ([facility]); 37 weeks gestation of ([facility]) 11/28/2024 1:00 PM EDT Ancillary Procedure [facility] [address] [place] [address] Excessive growth affecting management of , antepartum, single or unspecified fetus ([facility]) 11/20/2024 9:40 AM EDT Routine [facility] [address] [place] [phone] Solitario Tuttle, 36 weeks gestation of ([facility]); Third trimester ([facility]); H/O gestational diabetes in prior , currently ([facility]); Excessive growth affecting management of , antepartum, single or unspecified fetus ([facility]) 11/20/2024 Bamboo flowsheet [facility] [address] [place] [phone] Solitario Tuttle, 11/14/2024 9:30 AM EDT Routine [facility] [address] [place] [phone] Rayne Henson, JASMINE Third trimester ([facility]); 35 weeks gestation of ([facility]); H/O gestational diabetes in prior , currently ([facility]); Nausea and vomiting during ([facility]) 11/14/2024 Bamboo flowsheet [facility] [address] [facility] [place] [address] Rayne Henson NP 11/10/2024 Clinisync Result Encounter NOM[facility] External Department Unsolicited Solitario Tuttle DO 11/09/2024 Travel 10/30/2024 11:30 AM EDT Routine [facility] [address] [place] [address] Solitario Tuttle, Third trimester ([facility]); 33 weeks gestation of ([facility]) 10/30/2024 Bamboo flowsheet [facility] [address] [place] [address] Solitario Tuttle, 10/24/2024 Travel 10/16/2024 1:40 PM EDT Routine [facility] [address] [place] [address] [place] [phone] Solitario Tuttle, Third trimester ([facility]); 31 weeks gestation of ([facility]) 10/16/2024 1:00 PM EDT Ancillary Procedure [facility] [address] [facility] [place] [address] size inconsistent with dates ([facility]) 10/11/2024 Travel 10/02/2024 9:30 AM EDT Routine [facility] [address] [place] [address] Sheba Walker PA Third trimester ([facility]); Screen for STD (sexually transmitted disease); size inconsistent with dates ([facility]) 10/02/2024 External Result Encounter [facility] External Department Unsolicited Sheba Walker PA 10/02/2024 Bamboo flowsheet [facility] [address] [place] [address] Sheba Walker PA from Last 3 Months Social History Tobacco [...] Sign Reading Time Taken Comments Blood Pressure 122/70 12/05/2024 2:52 PM EDT Pulse - - Temperature - - Respiratory Rate - - Oxygen Saturation - - Inhaled Oxygen Concentration - - Weight 97 kg (213 lb 12.8 oz) 12/05/2024 2:52 PM EDT Height 162.6 cm (5' 4 ) 05/03/2022 12:00 PM EST Body Mass Index 36.7 05/03/2022 12:00 PM EST Plan of Treatment Upcoming Encounters Date Type Department Care Team (Late st Contact Info) Description 01/23/2025 8:30 AM EDT Visit [facility] [address] [place] [phone] Rayne Henson, JASMINE [address] [facility] [place] [address] Procedures Procedure Name Priority Date/Time Associated Diagnosis Comments ALL CBC WITH AUTO DIFF Routine 6:12 AM EDT HMHP CBC WITH PLATELET NO DIFFERENTIAL Routine 12/10/2024 8:00 PM EDT [facility] DRUG SCREEN RAPID (URINE) Routine 12/10/2024 6:40 PM EDT POCT URINALYSIS DIPSTICK Routine 12/05/2024 2:57 PM EDT 38 weeks gestation of ([facility]) Third trimester ([facility]) POCT URINALYSIS DIPSTICK Routine 11/28/2024 1:41 PM EDT Third trimester ([facility]) 37 weeks gestation of ([facility]) US OB FOLLOW UP TRANSABDOMINAL APPROACH Routine 11/28/2024 1:17 PM EDT Excessive growth affecting management of , antepartum, single or unspecified fetus ([facility]) POCT URINALYSIS DIPSTICK Routine 11/20/2024 10:03 AM EDT 36 weeks gestation of ([facility]) Third trimester ([facility]) POCT URINALYSIS DIPSTICK Routine 11/14/2024 9:56 AM EDT Third trimester ([facility]) TBH URINE MICROSCOPIC ONLY Routine 11/10/2024 3:36 PM EDT TBH UA (CLEAN/CATCH) MANAGER NET/MICRO IF IND. Routine 11/10/2024 3:36 PM EDT POCT URINALYSIS DIPSTICK Routine 10/30/2024 12:05 PM EDT Third trimester ([facility]) POCT URINALYSIS DIPSTICK Routine 10/16/2024 1:37 PM EDT Third trimester ([facility]) US OB FOLLOW UP TRANSABDOMINAL APPROACH Routine 10/16/2024 1:20 PM EDT size inconsistent with dates ([facility]) RECURRENT VAGINITIS (HTRX) Routine 10/02/2024 12:13 PM EDT POCT URINALYSIS DIPSTICK Routine 10/02/2024 9:53 AM EDT Third trimester ([facility]) from Last 3 Months Results * (ABNORMAL) ALL CBC WITH AUTO DIFF (12/12/2024 6:12 AM EDT) [facility] TBH WBC 17.4(H) 4.0 - 11.0 10 3/uL TBH TBH RBC 3.22(L) 4.20 - 5.40 10 6/uL TBH TBH HGB 10.3(L) 12.0 - 16.0 g/dL TBH TBH HCT 29.9(L) 36.0 - 48.0 % TBH TBH MCV 92.9 81.0 - 99.0 fL TBH TBH MCH 32.0 26.7 - 34.0 pg TBH TBH MCHC 34.4 29.9 - 35.2 g/dL TBH TBH RDW 14.5 11.0 - 15.0 % TBH TBH PLT 204 150 - 450 10 3/uL TBH TBH MPV 9.5 9.5 - 13.5 fL TBH NEUTROPHILS PERCENT AUTO 73.0 43.0 - 75.0 % TBH LYMPHOCYTES PERCENT AUTO 17.2(L) 20.5 - 60.0 % TBH MONOCYTES PERCENT AUTO 7.1 1.7 - 12.0 % TBH TBH EO % 0.3(L) 0.9 - 7.0 % TBH BASOPHILS PERCENT AUTO 0.2 0.2 - 2.0 % TBH IMMATURE GRANULOCYTES PCT AUTO 2.2(H) 0.0 - 0.5 % TBH NEUTROPHILS ABSOLUTE AUTO 12.6(H) 1.4 - 6.5 10 3/uL TBH LYMPHOCYTES ABSOLUTE AUTO 3.0 1.2 - 3.8 10 3/uL TBH MONOCYTES ABSOLUTE AUTO 1.2(H) 0.3 - 0.8 10 3/uL TBH TBH EO # 0.1 0.0 - 0.7 10 3/uL TBH BASOPHILS ABSOLUTE AUTO 0.0 0.0 - 0.1 10 3/uL TBH IMMATURE GRANULOCYTES ABS AUTO 0.39(H) 0.00 - 0.03 10 3/uL TBH 12/12/2024 6:12 AM EDT 12/12/2024 6:22 AM EDT Narrative [facility] - 12/12/2024 6:25 AM EDT us Solitario Parag DO [facility] Final Result [facility] * (ABNORMAL) HP CBC WITH PLATELET NO DIFFERENTIAL (12/10/2024 8:00 PM EDT) TB WBC 14.0(H) 4.0 - 11.0 10 3/uL TBH TBH RBC 3.30(L) 4.20 - 5.40 10 6/uL TBH TBH HGB 10.4(L) 12.0 - 16.0 g/dL TB TB HCT 30.0(L) 36.0 - 48.0 % TBH TB MCV 90.9 81.0 - 99.0 fL TBH TBH MCH 31.5 26.7 - 34.0 pg TBH TBH MCHC 34.7 29.9 - 35.2 g/dL TB TB RDW 14.3 11.0 - 15.0 % TBH TBH PLT 206 150 - 450 10 3/uL TBH TBH MPV 9.6 9.5 - 13.5 fL TB 12/10/2024 8:00 PM EDT 12/10/2024 8:40 PM EDT Narrative [facility] - 12/10/2024 8:50 PM EDT Solitario Parag DO CLINISYNC Final Result Performing Organization Address City/[facility] Co de Phone Number [facility] * TB DRUG SCREEN RAPID (URINE) (12/10/2024 6:40 PM EDT) CANNABINOID SCREEN URINE NEGATIVE NEGATIVE TBH PHENCYCLIDINE [...] 50 ng/mL TCA (Trycyclic Antidepressants): 300 ng/mL 12/10/2024 6:40 PM EDT 12/10/2024 8:40 PM EDT Narrative [facility] - 12/10/2024 9:00 PM EDT Solitario Parag DO CLINISYNC Final Result [facility] * (ABNORMAL) POCT urinalysis dipstick manually resulted (12/05/2024 2:57 PM EDT) Only the most recent of7 resultswithin the time period is included. Color, [...] Leukocytes, UA Positive Negative - 500+++ Rafael/mcL Comment:2+ Nitrite, UA Negative Negative - Positive Urine 12/05/2024 2:57 PM EDT Solitario Parag DO POINT OF CARE TEST ENTER/EDIT OR DERABLES Final Result * US OB follow up transabdominal approach (11/28/2024 1:17 PM EDT) Only the most recent of2 resultswithin the time period is included. Anatomical Region Laterality Modality Body Ultrasound 11/29/2024 1:35 PM EDT Impressions 11/29/2024 1:57 PM EDT Single, live intrauterine , current sonographic age of 38 weeks and 2 days, with an estimated date of delivery of December 10, 2024 (prior SANDRO December 14, 2024). * Estimated Weight (g) by Percentile is based upon an accurate estimated age based on last menstrual period. TRANSCRIBED BY: ELECTRONICALLY SIGNED BY: Tomer Dowell MD Narrative 11/29/2024 1:57 PM EDT FINDINGS: Comparison made with prior exam October 16, 2024. A single, live intrauterine is present with normal cardiac rate of 144 beats per minute. Normal activity and amniotic fluid volume. Amniotic fluid index is 16 cm. Morphology is grossly normal. The current sonographic age is 38 weeks and 2 days, based on the following measurements: BPD 9.3 cm (37 weeks, 6 days) Head Circumference 34.6 cm (40 weeks, 1 day) Abdominal Circumference 34.0 cm (38 weeks, 0 days) Femur Length 7.2 cm (36 weeks, 6 days) Presentation Cephalic Weight (g) by Percentile 77.1 % * These measurements result in an estimated date of delivery of December 10, 2024. The current estimated weight is 3347 grams (7 pounds, 6 ounces). Procedure Note Tomer Dowell MD - 11/29/2024 FINDINGS: Comparison made with prior exam October 16, 2024. A single, live intrauterine is present with normal cardiacrate of 144 beats per minute. Normal activity and amniotic fluidvolume. Amniotic fluid index is 16 cm. Morphology is grossly normal. Thecurrent sonographic age is 38 weeks and 2 days, based on the followingmeasurements: BPD 9.3 cm (37 weeks, 6 days) Head Circumference 34.6 cm (40 weeks, 1 day) Abdominal Circumference 34.0 cm (38 weeks, 0 days) Femur Length 7.2 cm (36 weeks, 6 days) Presentation Cephalic Weight (g) by Percentile 77.1 % * These measurements result in an estimated date of delivery of December. The current estimated weight is 3347 grams (7 pounds, 6ounces). IMPRESSION: Single, live intrauterine , current sonographic age of 38 weeksand 2 days, with an estimated date of delivery of December 10, 2024 (priorEDD December 14, 2024). * Estimated Weight (g) by Percentile is based upon an accurateestimated age based on last menstrual period. TRANSCRIBED BY: ELECTRONICALLY SIGNED BY: Tomer Dowell MD us Solitario Parag DO IMG OB US PROCEDURES Final Resul t * (ABNORMAL) TBH URINE MICROSCOPIC ONLY (11/10/2024 [...] [facility]IN[facility]NC [facility] * (ABNORMAL) TBH UA (CLEAN/CATCH) MANAGER NET/MICRO IF IND. (11/10/2024 3:36 PM EDT) COLOR [...] - 11/10/2024 4:23 PM EDT us Solitario Flowero DO CLINISYNC Final Result [facility] * RECURRENT VAGINITIS (HTRX) (10/02/2024 12:13 PM EDT) [facility] ATOPOBIUM VAGINAE 0 19.961 - 24.689 ppm 10/03/2024 5:58 AM EDT [facility] ATOPOBIUM VAGINAE Not Detected 19.961 - 24.689 ppm 10/03/2024 5:58 AM EDT [facility] BVAB 2,3 (BACTERIAL VAGINOSIS ASSOCIATED BACTERIA 2, 3); MOBILUNCUS SPP 0 19.961 - 24.689 ppm 10/03/2024 5:58 AM EDT [facility] BVAB 2,3 (BACTERIAL VAGINOSIS ASSOCIATED BACTERIA 2, 3); MOBILUNCUS SPP Not Detected 19.961 - 24.689 ppm 10/03/2024 5:58 AM EDT [facility] ALPHONSE ALBICANS, PARAPSILOSIS, TROPICALIS 0 19.961 - 30.770 ppm 10/03/2024 5:58 AM EDT [facility] ALPHONSE ALBICANS, PARAPSILOSIS, TROPICALIS Not Detected 19.961 - 30.770 ppm 10/03/2024 5:58 AM EDT [facility] ALPHONSE GLABRATA 0 23.000 - 32.138 ppm 10/03/2024 5:58 AM EDT [facility] ALPHONSE GLABRATA Not Detected 23.000 - 32.138 ppm 10/03/2024 5:58 AM EDT [facility] ALPHONSE KRUSEI 0 23.000 - 32.271 ppm 10/03/2024 5:58 AM EDT [facility] ALPHONSE KRUSEI Not Detected 23.000 - 32.271 ppm 10/03/2024 5:58 AM EDT [facility] CHLAMYDIA TRACHOMATIS 0 23.000 - 31.467 ppm 10/03/2024 5:58 AM EDT [facility] CHLAMYDIA TRACHOMATIS Not Detected 23.000 - 31.467 ppm 10/03/2024 5:58 AM EDT [facility] GARDNERELLA VAGINALIS 0 19.961 - 24.689 ppm 10/03/2024 5:58 AM EDT [facility] GARDNERELLA VAGINALIS Not Detected 19.961 - 24.689 ppm 10/03/2024 5:58 AM EDT [facility] MEGASPHAERA (TYPES 1, 2) 0 19.961 - 24.689 ppm 10/03/2024 5:58 AM EDT [facility] MEGASPHAERA (TYPES 1, 2) Not Detected 19.961 - 24.689 ppm 10/03/2024 5:58 AM EDT [facility] NEISSERIA GONORRHOEAE 0 23.000 - 32.117 ppm 10/03/2024 5:58 AM EDT [facility] NEISSERIA GONORRHOEAE Not Detected 23.000 - 32.117 ppm 10/03/2024 5:58 AM EDT [facility] TRICHOMONAS VAGINALIS 0 23.000 - 32.119 ppm 10/03/2024 5:58 AM EDT [facility] TRICHOMONAS VAGINALIS Not Detected 23.000 - 32.119 ppm 10/03/2024 5:58 AM EDT [facility] MYCOPLASMA GENITALIUM 0 19.961 - 24.689 ppm 10/03/2024 5:58 AM EDT [facility] MYCOPLASMA GENITALIUM Not Detected 19.961 - 24.689 ppm 10/03/2024 5:58 AM EDT [facility] Tissue 10/02/2024 12:1 3 PM EDT 10/03/2024 1:32 AM EDT us Sheba JESSICA LAB BLOOD ORDERABLES Final Resul t [facility] [address] [place] [address] from Last 3 Months Insurance [employer]
--- OUTSIDE RECORDS SUMMARY | 2025-01-01 08:07 | XMS_ITS | Encounter Summary ---
Author Organization [facility] Address [address] [place] [address] Care Team Providers Care Steam And Gas Turbines Assembler Name Role Phone Unavailable Primary Care Provider Unavailabl e Encounter Details Date Type Department Care Team (Late Contact Info) Description 10/24/2022 Abstract [facility] [address] [place] [address] Solitario Tuttle DO [address] [facility] [address] [place], [facility]11 Social History Tobacco Use Types Packs/Day Years [...] Department Care Team (Late Contact Info) Description 01/23/2025 8:30 AM EDT Visit [facility] 102 [facility] [place] [address] Rayne Henson, JASMINE [address] [place] [address] documented as of this encounter Visit Diagnoses Not on filedocumented in this encounter
--- OUTSIDE RECORDS SUMMARY | 2025-01-01 08:07 | XMS_ITS | Patient Health Record ---
Author Organization [facility] Address [address] [place] [address] Care Team Providers Care Associate Project Manager Name Role Phone Marti Greene APRN Primary Care Provider Unava ilable Reason For Referral No Information Medications Medication SIG (Take, Route, Frequency, Duration) Notes Start Date End Date Status 04/23 1-20 MG-MCG take 1 tablet by oral route once daily Oral 1 Active Immunizations Vaccine Route Administration Date Status Comme nts Varicella Unknown 07/08/1999 Administered Varicella Unknown 09/05/2008 Administered Tdap Unknown 10/19/2010 Administered MMR Unknown 07/08/1999 Administered MMR Unknown 11/26/2003 Administered Meningococcal ACYW (Menactra) Unknown 09/25/2009 Administered Meningococcal ACYW (Menactra) Unknown 09/16/2015 Administered Meningococcal ACYW (Menactra) Unknown 02/10/2018 Others Men B (Bexsero) IM Intramuscular 09/16/2016 Administered Men B (Bexsero) IM Intramuscular 10/26/2016 Administered IPV (Polio) Unknown 1998 Administered IPV (Polio) Unknown 1998 Administered IPV (Polio) Unknown 07/08/1999 Administered IPV (Polio) Unknown 11/26/2003 Administered Influenza, seasonal, injectable, preservative free, 6-35 months Unknown 03/02/2012 Administered Influenza 3 VERONICA (Afluria) 3 years+ Unknown 03/02/2012 Administered HPV 9 Unknown 09/11/2014 Administered HPV 9 Unknown 11/11/2014 Administered HPV 9 Unknown 04/28/2015 Administered Hib (PRP-OMP) - PedvaxHib, 3 dose schedule Unknown 1998 Administered Hib (PRP-OMP) - PedvaxHib, 3 dose schedule Unknown 1998 Administered Hib (PRP-OMP) - PedvaxHib, 3 dose schedule Unknown 1998 Administered Hib (PRP-OMP) - PedvaxHib, 3 dose schedule Unknown 09/24/1999 Administered Hep B ( - 19 yo) Unknown 1998 Administered Hep B ( - 19 yo) Unknown 1998 Administered Hep B ( - 19 yo) Unknown 03/16/1999 Administered Hep A, ped/adol, 3 dose Unknown 09/11/2014 Administered Hep A, ped/adol, 3 dose IM Intramuscular 09/16/2016 Admini stered DTaP Unknown 1998 Administered DTaP Unknown 1998 Administered DTaP Unknown 1998 Administered DTaP Unknown 09/24/1999 Administered DTaP Unknown 11/25/2005 Administered Problems Problem Type SNOMED Code ICD Code Onset Dates Problem Status W/U Status Risk Notes Problem Generalized anxiety disorder (16000704) Generalized anxiety disorder (F41.1) 8 Active confirmed Problem Moderate major depression, single episode (38364439) Current moderate episode of major depressive disorder without prior episode (F32.1) 8 Active confirmed Problem Constipation (50682894) Constipation (K59.00) 9 Active confirmed Plan Of Treatment No Information Insurance Providers Payer Name Payer Address Payer Phone Subscriber Number Group Number Insured Name Patient Relationship to Insured Coverage Start Date Coverage End Date Umr [address] [address] [place] [address] [id number] Miles Ochoa Other [place] [facility] [address] [place] [address] [id number] Abram Landaverde Other [employer] [address] [place] [address] [id number] Miles Ochoa Other [facility] [address] [address] [place] [address] [id number] Miles Ochoa Other Medications Administered Medication Instructions Date of Administration Dosage Notes PPD 02/08/2014
--- OUTSIDE RECORDS SUMMARY | 2025-01-01 08:07 | XMS_ITS | Patient Health Record ---
Author Organization [facility] C Address [address] [place] [address] Care Team Providers Care Field Services Manager Name Role Phone GENOVEVA RANDALLEN Primary Care Provider Unavailabl e Allergies No Known Allergies Reason For Referral No Information Medications Medication SIG (Take, Route, Frequency, Duration) Notes Start Date End Date Status 1.5-30 MG-MCG 1 tablet Orally Once a day A ctive Immunizations Vaccine Route Administration Date Status Comme nts [id number] Quad PFS (0.5mL Admin) 16 y/o & [...] Notes Problem Gestation less than 9 weeks (832781772) Less than 8 weeks gestation of (Z3A.01) Active confirmed Problem Nausea (977074073) Nausea (R11.0) Active confirmed Problem Mixed anxiety and depressive disorder (306596655) Anxiety and depression (F41.8) Active confirmed Problem Tobacco user (669115717) Other tobacco product nicotine dependence, uncomplicated (F17.290) Active confirmed Plan Of Treatment No Information Insurance Providers Payer Name Payer Address Payer Phone Subscriber Number Group Number Insured Name Patient Relationship to Insured Coverage Start Date Coverage End Date [employer] [address] MEDICA[employer] [address] [place] [address] [id number] Oneida Ochoa Self - patient is the insured Medical (General) History Medical History History ICD Code Anxiety and depression F41.8 History of UTI Z87.440 Surgical History Surgery Date(Month/Year) wisdom teeth Hospitalization History Reason Date(Month/Year) childbirth
--- OUTSIDE RECORDS SUMMARY | 2025-01-01 08:08 | XMS_ITS | Encounter Summary ---
Author Organization [facility] Address [address] [place] [address] Care Team Providers Care Stock Selector Name Role Phone Unavailable Primary Care Provider Unavailabl e Encounter Details Date Type Department Care Team (Late st Contact Info) Description 06/13/2024 Abstract [facility] [address] [place] [address] Solitario Tuttle DO [address] [facility] [place] [address] Social History Tobacco Use Types Packs/Day [...] 8:30 AM EDT Visit [facility] [address] [place] [address] Rayne Henson NP [address] [place] [address] documented as of this encounter Visit Diagnoses Not on filedocumented in this encounter
--- OUTSIDE RECORDS SUMMARY | 2025-01-01 08:08 | XMS_ITS | Encounter Summary ---
Author Organization [facility] Address [address] [place] [address] Care Team Providers Care Manager Art Name Role Phone Unavailable Primary Care Provider Unavailabl e Encounter Details Date Type Department Care Team (Late st Contact Info) Description 06/28/2024 Abstract [facility] [address] [place] [address] Solitario Tuttle DO [address] [facility] [place] [address] Social History Tobacco Use Types Packs/Day [...] 8:30 AM EDT Visit [facility] 102 [facility] [address] Rayne Henson NP [address] [place] [address] documented as of this encounter Visit Diagnoses Not on filedocumented in this encounter
--- NOTE | 2025-01-01 10:18 | PC.NURSE ---
Randy and 3 week old boy Crew arrive for support. Father, Tien attends also. Parents arrive stating pediatric dentist prefers be seen by LC prior to evaluation of oral tethers. Goal today is to evaluate for improved feeds and give sucking exercises for at home support of optimal feeding from bottle. (Mom not by her choice) S: Parents complain of excessive long feeds, 1 hour minimum and often up to 2 hours. Hiccups after each feeding, and very gassy. Lips have blisters on top and bottom. Leaking around bottle nipple during feeds. PCP identified tongue and lip ties at well child visit as well as LC when infant was initially assessed after . O: asleep at beginning of exam. Lips noted to have cobble stone effect and large suck blister upper lip in center. Cheeks full and round, moderate tension noted during exam. Gloved finger introduced into mouth finds high bubble like palate and quick gag reflex. Upper lip frenulum noted and frenulum blanches when lip rolled toward tip of nose. Tongue lays flat on floor of mouth, noted to have white coating on posterior 2/3 rd of tongue. Weak tug of war at this point, remains drowsy/ asleep. Infant to scales , weight 7-12 and today's weight is 8-13. Infant wakes and roots on hands. Tug of war with gloved finger slightly improved, but able to easily remove finger from mouth. Tongue extends to gum ridge mostly, with much encouragement baby will bring tongue slightly past gum ridge. Able to laterally move tongue body left and right towards finger rubbing gums, tip / anterior tongue does not follow well. A: offered bottle per mother, currently using Praveena bottle with wide nipple base and ortho shaped teat. Infant struggles to grasp nipple initially and to latch. Parents state he did really well this time, it usually takes much longer sucking is very slow and somewhat disorganized. Feeds this way for 10 minutes and has no intake from bottle noted. Parents have not experimented with other bottles since first week of age as this is the one he does best with LC recommends a longer , standard shaped nipple. Able to provide same for trial. immediately latched and began more rhythmic sucking. Takes 1 oz in approximately 5 minutes. Parents pleased. Tolerated well, burped and resumes /finishes feed using standard shape nipple. Feeding total takes 20 min, burps and retains feed. Taking 4 oz formula without difficulty. P: Plan at this time is to change bottle nipples for ease of feeds for both baby and parents. Parents instructed on use of suck exercises for optimal tongue movement. Demo of Cheek massage, Fish lips, Tug of war and Pressure, Bottom lip tickle, and Gum massage to encourage tongue lift and lateralization. Parents state will be able to obtain standard shape nipples for feeds and will maintain suck exercises 4X daily prior to feeds. Plan to follow up with Dr Millan 01/03/2025 as scheduled for further evaluation of possible upper lip tie and tongue tie. Family home at this time will return 01/07/2025 if needed post evaluation with Dr Millan
== END 2025-01-01 10:56 | disposition home or self-care (01) ==
PROVIDERS: Visit Provider Obstetrics & Gynecology
DX: Z39.1 Encounter for care and examination of lactating mother (principal)

== ENCOUNTER 2025-01-07 08:35 | Outpatient (OUT) | payer SELFPAY ==
--- OUTSIDE RECORDS SUMMARY | 2025-01-07 08:41 | XMS_ITS | Patient Health Record ---
Author Organization [facility] C Address [address] [place] [address] Care Team Providers Care Bus Info Consultant Name Role Phone GENOVEVA RANDALLEN Primary Care Provider Unavailabl e Allergies No Known Allergies Reason For Referral No Information Medications Medication SIG (Take, Route, Frequency, Duration) Notes Start Date End Date Status 1.5-30 MG-MCG 1 tablet Orally Once a day A ctive Immunizations Vaccine Route Administration Date Status Comme nts [id number] Quad PFS (0.5mL Admin) 16 y/o & [...] Notes Problem Gestation less than 9 weeks (021357165) Less than 8 weeks gestation of (Z3A.01) Active confirmed Problem Nausea (676050428) Nausea (R11.0) Active confirmed Problem Mixed anxiety and depressive disorder (974984992) Anxiety and depression (F41.8) Active confirmed Problem Tobacco user (111698802) Other tobacco product nicotine dependence, uncomplicated (F17.290) Active confirmed Plan Of Treatment No Information Insurance Providers Payer Name Payer Address Payer Phone Subscriber Number Group Number Insured Name Patient Relationship to Insured Coverage Start Date Coverage End Date [employer] [place]ICA[place] [address] [place] [address] [id number] Oneida Ochoa Self - patient is the insured Medical (General) History Medical History History ICD Code Anxiety and depression F41.8 History of UTI Z87.440 Surgical History Surgery Date(Month/Year) wisdom teeth Hospitalization History Reason Date(Month/Year) childbirth
--- OUTSIDE RECORDS SUMMARY | 2025-01-07 08:41 | XMS_ITS | Encounter Summary ---
Author Organization [facility] Address [address] [place] [place] [address] Care Team Providers Care Mobile Patrol Officer Name Role Phone Unavailable Primary Care Provider Unavailabl e Encounter Details Date Type Department Care Team (Late Contact Info) Description 10/24/2022 Abstract [facility] [address] [place] [address] Sloitario Tuttle DO [address] [facility] [address] [place], [facility]11 Social History Tobacco Use Types Packs/Day [...] 8:30 AM EDT Visit [facility] 102 [facility] [place] [place] [address] Rayne Henson, JASMINE [address] [place] [address] documented as of this encounter Visit Diagnoses Not on filedocumented in this encounter
--- OUTSIDE RECORDS SUMMARY | 2025-01-07 08:41 | XMS_ITS | Encounter Summary ---
Author Organization [facility] Address [address] [place] [address] Care Team Providers Care Qa Analyst Name Role Phone Unavailable Primary Care Provider Unavailabl e Encounter Details Date Type Department Care Team (Late st Contact Info) Description 06/28/2024 Abstract [facility] [address] [place] [address] Solitario Tuttle DO [address] [facility] [place] [address] Social History Tobacco Use Types Packs/Day [...] 8:30 AM EDT Visit [facility] 102 [facility] [place] [address] Rayne Henson NP [address] [place] [address] documented as of this encounter Visit Diagnoses Not on filedocumented in this encounter
--- OUTSIDE RECORDS SUMMARY | 2025-01-07 08:41 | XMS_ITS | Encounter Summary ---
Author Organization [facility] Address [address] [place] [address] Care Team Providers Care Tapper Hand Name Role Phone Unavailable Primary Care Provider Unavailabl e Encounter Details Date Type Department Care Team (Late Contact Info) Description 12/11/2024 Abstract [facility] [address] [place] [address] Solitario Tuttle DO [address] [facility] [place] [address] Social History [...] 8:30 AM EDT Visit [facility] 102 [place] [address] Rayne Henson NP [address] [place] [address] documented as of this encounter Visit Diagnoses Not on filedocumented in this encounter
--- OUTSIDE RECORDS SUMMARY | 2025-01-07 08:41 | XMS_ITS | Patient Health Record ---
Author Organization [facility] Address [address] [place] [address] Care Team Providers Care Director Life Sales Name Role Phone Marti Greene APRN Primary [...] Status Risk Notes Problem Generalized anxiety disorder (48080188) Generalized anxiety disorder (F41.1) 8 Active confirmed Problem Moderate major depression, single episode (84942202) Current moderate episode of major depressive disorder without prior episode (F32.1) 8 Active confirmed Problem Constipation (83354774) Constipation (K59.00) 9 Active confirmed Plan Of Treatment No Information Insurance Providers Payer Name Payer Address Payer Phone Subscriber Number Group Number Insured Name Patient Relationship to Insured Coverage Start Date Coverage End Date Umr [address] [address] [place] [address] [id number] Miles Ochoa Other [place] [facility] [address] [place] [address] [id number] Abram Landaverde Other [employer] [address] [place] [address] [id number] Miles Ochoa Other [facility] [address] [address] [place] [address] [id number] Miles Ochoa Other Medications Administered Medication Instructions Date of Administration Dosage Notes PPD 02/08/2014
--- OUTSIDE RECORDS SUMMARY | 2025-01-07 08:41 | XMS_ITS | Clinical Summary ---
Author Organization [facility] Address [address] [place] [address] Care Team Providers Care Information Technology Architect Name Role Phone Unavailable Primary Care Provider Unavailabl e Allergies No known active allergies Medications 28-0.8 MG tablet 1 (one) time each day at the same time Active aspirin 81 MG EC tablet Take 81 mg by mouth Daily Active Encounters Date Type Department Care Team Description 12/28/2024 [place] [address] Solitario Tuttle, DO 12/12/2024 Clinisync Result Encounter NOMS External Department Unsolicited Solitario Tuttle, DO 12/11/2024 Abstract [facility] [address] [place] [address] Solitario Tuttle, DO 12/10/2024 Clinisync Result Encounter NOMS External Department Unsolicited Solitario Tuttle, DO 12/06/2024 Abstract [facility] [address] [place] [address] Solitario Tuttle, DO 12/05/2024 2:20 PM [place] [address] Solitario Tuttle, DO 38 weeks gestation of ([facility]); Third trimester ([facility]); H/O gestational diabetes in prior , currently ([facility]); Excessive growth affecting management of , antepartum, single or unspecified fetus ([facility]) 12/05/2024 Bamboo flowsheet [facility] [address] [facility] [address] Solitario Tuttle, 12/04/2024 Travel 11/28/2024 1:50 PM EDT Routine [facility] [address] [facility] [address] Sheba Walker PA Third trimester ([facility]); 37 weeks gestation of ([facility]) 11/28/2024 1:00 PM EDT Ancillary Procedure [facility] [address] [facility] [address] Excessive growth affecting management of , antepartum, single or unspecified fetus ([facility]) 11/20/2024 9:40 AM EDT Routine [facility] [address] [place] [address] Solitario Tuttle, 36 weeks gestation of ([facility]); Third trimester ([facility]); H/O gestational diabetes in prior , currently ([facility]); Excessive growth affecting management of , antepartum, single or unspecified fetus ([facility]) 11/20/2024 Bamboo flowsheet [facility] [address] [facility] [place] [phone] Solitario Tuttle, 11/14/2024 9:30 AM EDT Routine [facility] [address] [place] [address] Rayne Henson, JASMINE Third trimester ([facility]); 35 weeks gestation of ([facility]); H/O gestational diabetes in prior , currently ([facility]); Nausea and vomiting during ([facility]) 11/14/2024 Bamboo flowsheet [facility] [address] [place] [address] [place] [address] Rayne Henson NP 11/10/2024 Clinisync Result Encounter NOMS External Department Unsolicited Solitario Tuttle DO 11/09/2024 Travel 10/30/2024 11:30 AM EDT Routine [facility] [place] [address] Solitario Tuttle, Third trimester ([facility]); 33 weeks gestation of ([facility]) 10/30/2024 Bamboo flowsheet [facility] [address] [place] [address] [place] [address] Solitario Tuttle DO 10/24/2024 Travel 10/16/2024 1:40 PM EDT Routine [facility] [address] [place] [address] [place] [address] Solitario Tuttle DO Third trimester ([facility]); 31 weeks gestation of ([facility]) 10/16/2024 1:00 PM EDT Ancillary Procedure [facility] [place] [address] size inconsistent with dates ([facility]) 10/11/2024 Travel from Last 3 Months Social History [...] 01/23/2025 8:30 AM EDT Visit [facility] [address] [facility] [place] [address] Rayne Henson, JASMINE [address] [place] [address] Procedures Procedure Name Priority Date/Time Associated Diagnosis Comments ALL CBC WITH AUTO DIFF Routine 6:12 AM EDT [facility] CBC WITH PLATELET NO DIFFERENTIAL Routine 12/10/2024 8:00 PM EDT [facility] DRUG SCREEN RAPID (URINE) Routine 12/10/2024 6:40 PM EDT POCT URINALYSIS DIPSTICK Routine 12/05/2024 2:57 PM EDT 38 weeks gestation of ([facility]) Third trimester ([facility]) POCT URINALYSIS DIPSTICK Routine 11/28/2024 1:41 PM EDT Third trimester ([facility]) 37 weeks gestation of ([facility]) OB FOLLOW UP TRANSABDOMINAL APPROACH Routine 11/28/2024 1:17 PM EDT Excessive growth affecting management of , antepartum, single or unspecified fetus ([facility]) POCT URINALYSIS DIPSTICK Routine 11/20/2024 10:03 AM EDT 36 weeks gestation of ([facility]) Third trimester ([facility]) POCT URINALYSIS DIPSTICK Routine 11/14/2024 9:56 AM EDT Third trimester ([facility]) [facility] URINE MICROSCOPIC ONLY Routine 11/10/2024 3:36 PM EDT [facility] UA (CLEAN/CATCH) BRAIDED BAND ASSEMBLER/MICRO IF IND. Routine 11/10/2024 3:36 PM EDT POCT URINALYSIS DIPSTICK Routine 10/30/2024 12:05 PM EDT Third trimester ([facility]) POCT URINALYSIS DIPSTICK Routine 10/16/2024 1:37 PM EDT Third trimester ([facility]) US OB FOLLOW UP TRANSABDOMINAL APPROACH Routine 10/16/2024 1:20 PM EDT size inconsistent with dates ([facility]) from Last 3 Months Results * (ABNORMAL) ALL CBC WITH AUTO DIFF (12/12/2024 6:12 AM EDT) TB[facility] WBC 17.4(H) 4.0 - 11.0 10 [...] - 12/12/2024 6:25 AM EDT us Solitario Tuttle DO [facility] * (ABNORMAL) [facility] CBC WITH PLATELET NO DIFFERENTIAL (12/10/2024 8:00 PM EDT) TB WBC 14.0(H) 4.0 - 11.0 10 3/uL TBH TBH RBC 3.30(L) 4.20 - 5.40 10 6/uL TBH TBH HGB 10.4(L) 12.0 - 16.0 g/dL TBH TBH HCT 30.0(L) 36.0 - 48.0 % TBH TBH MCV 90.9 81.0 - 99.0 fL TBH TBH MCH 31.5 26.7 - 34.0 pg TBH TBH MCHC 34.7 29.9 - 35.2 g/dL TBH TBH RDW 14.3 11.0 - 15.0 % TBH TBH PLT 206 150 - 450 10 3/uL TBH TB MPV 9.6 9.5 - 13.5 fL TB 12/10/2024 8:00 PM EDT 12/10/2024 8:40 PM EDT Narrative CLINISYNC - 12/10/2024 8:50 PM EDT us Solitario Parag DO [facility] Final Result [facility] * [facility] DRUG SCREEN RAPID (URINE) (12/10/2024 6:40 PM [...] Narrative CLINISYNC - 12/10/2024 9:00 PM EDT us Solitario Parag DO CL[facility]NC Final [facility] * (ABNORMAL) POCT urinalysis dipstick manually resulted (12/05/2024 2:57 PM EDT) Only the most recent of6 resultswithin the time period is included. Color, UA Yellow Clarity, UA Clear Glucose, UA Negative Negative - 1999(110) ++++ mg/dL Bilirubin, UA Negative Negative - 4(70) +++ mg/dL Ketones, UA Negative Negative - 160(16) ++++ mg/dL Spec Grav, UA 1.015 1 - 1.03 Blood, UA Negative Negative - 50 Stephon/mcL pH, UA 6.5 5 - 9 Protein, UA Negative Negative - 1999(20) ++++ mg/dL Urobilinogen, UA 1.0 0.2 - 12 mg/dL Leukocytes, UA Positive Negative - 500+++ Rafael/mcL Comment:2+ Nitrite, UA Negative Negative - Positive Urine 12/05/2024 2:57 PM EDT [facility] PO[facility] CARE TEST ENTER/EDIT OR [...] period. TRANSCRIBED BY: ELECTRONICALLY SIGNED BY: Tomer oDwell MD Narrative 11/29/2024 1:57 PM EDT FINDINGS: [...] Tomer Dowell MD us Solitario Parag DO IM OB US PROCEDURES Final Resul t * [...] DO CLINISYNC Final Result Performing Organization Address [facility]/ZIP Co de Phone Number CLINISYNC [facility] * (ABNORMAL) TBH UA (CLEAN/CATCH) BRAIDED BAND ASSEMBLER/MICRO IF IND. (11/10/2024 3:36 PM EDT) COLOR [...] DO CLINISYNC Final Result Performing Organization Address City/[facility] Co de Phone Number CLINISYNC [facility]H from Last 3 Months Insurance [employer]
--- OUTSIDE RECORDS SUMMARY | 2025-01-07 08:41 | XMS_ITS | Encounter Summary ---
Author Organization [facility] Address [address] [place] [address] Care Team Providers Care It Infrastructure Architect Name Role Phone Unavailable Primary Care Provider Unavailabl e Encounter Details Date Type Department Care Team (Late st Contact Info) Description 06/07/2024 Abstract [facility] [address] [place] [address] Solitario Tuttle DO [address] [facility] [place] [address] Social History Tobacco Use Types Packs/Day [...] AM EDT Visit [facility] [address] [facility] [place] [address] Rayne Henson NP [address] [place] [phone] documented as of this encounter Visit Diagnoses Not on filedocumented in this encounter
--- OUTSIDE RECORDS SUMMARY | 2025-01-07 08:41 | XMS_ITS | Encounter Summary ---
Author Organization [facility] Address [address] [place] [address] Care Team Providers Care Public Safety Telecommunicator Name Role Phone Unavailable Primary Care Provider Unavailabl e Encounter Details Date Type Department Care Team (Late Contact Info) Description 12/28/2024 Abstract [facility] [address] [place] [address] Solitario Tuttle DO [address] [facility] [address] [place], [place] [id number] Social History Tobacco Use Types Packs/Day Years [...] 8:30 AM EDT Visit [facility] [address] [facility] [place] [address] Rayne Henson NP [address] [place] [phone] documented as of this encounter Visit Diagnoses Not on filedocumented in this encounter
--- OUTSIDE RECORDS SUMMARY | 2025-01-07 08:41 | XMS_ITS | Encounter Summary ---
Author Organization [facility] Address [address] [place] [address] Care Team Providers Care Back Seam Stitcher Name Role Phone Unavailable Primary Care Provider Unavailabl e Encounter Details Date Type Department Care Team (Late Contact Info) Description 12/06/2024 Abstract [facility] [address] [place] [address] Solitario Tuttle DO [address] [facility] [address] [place], [place] [id number] Social History Tobacco Use Types Packs/Day Years [...] Visit [facility] [address] [place] [address] Rayne Henson NP [address] [place] [phone] documented as of this encounter Visit Diagnoses Not on filedocumented in this encounter
--- OUTSIDE RECORDS SUMMARY | 2025-01-07 08:41 | XMS_ITS | Encounter Summary ---
Author Organization [facility] Address [address] [place] [address] Care Team Providers Care Meat Wrapper Name Role Phone Unavailable Primary Care Provider Unavailabl e Encounter Details Date Type Department Care Team (Late st Contact Info) Description 06/13/2024 Abstract [facility] [address] [place] [address] Solitario Tuttle DO [address] [facility] [place] [address] Social History Tobacco Use Types Packs/Day [...] 8:30 AM EDT Visit [facility] [address] [facility] [place] [address] Rayne Henson NP [address] [place] [phone] documented as of this encounter Visit Diagnoses Not on filedocumented in this encounter
--- NOTE | 2025-01-07 12:58 | PC.NURSE ---
Tien Padilla and 4 week old son, Crew arrive for evaluation of feed post tongue and lip revision for oral tethers. evaluated and treated per Dr Millan, 01/03/2025 Goal today is to evaluate oral wounds, and sucking for improvement in bottle feeding. S: Parents express that feeding changed immediately with oral revision. is not so tired/sleepy with feeds. Feeds taking approximately 40 minutes instead of up to 2 hours. Baby is calmer and more relaxed with feeds. No longer having hiccups with each feed and is not as gassy. Burping well with each feeding, burping is easier . O: aroused for assessment, stretches and looking around. Notable difference in cobblestoning of lips, lower lip smooth, and only center lip callus seen. Cheeks are more relaxed than previously noted. Upper lip frenulum released and wound healing. Parents state We hate to make him cry so we are doing exercises twice a day LC explains that re-attachment can occur and stretches important to keep revision as complete as possible. Tongue more mobile, extending tongue to palate without stimulation. Gloved finger introduced gently and tongue cups well, stronger tug of war noted. Baby resistant to lateral movement, after several attempts made baby able to lateralize tongue well to lower gums and less so to upper gums. Parents State not really doing suck exercises either as baby would be fussy during attempts. Long discussion on imprtance of helping to recognize movement of tongue and assist mouth to function well. Parents agree that they do not want to repeat this procedure again in future if not taken care of properly. States will start stretches 3-4 times daily and some suck training with each feed. A: Father mixes formula bottle and begins feeding. Infant quickly finds and latches to teat. Immediate suck and swallow noted. Parents report minimal leaking around the bottle, less gassy and minimal hiccups throughout the day. Baby sucking well, dad checks and notes has taken less than 1/2 oz 10 minutes into feed. Advised to sit more upright, does this and infant appears more relaxed. Feeding still slow, reiterated the suck exercises will help strengthen unused muscles needed for functional feed. Given standard nipple from hospital stock and infant able to latch and feed well. 3 nipples sent home with parents for use over next week. P: To continue exercises and stretches for best oral function. Once muscles become stronger will be able to use standard silicone nipples. Family will call for further questions or concerns. Home ambulatory.
== END 2025-01-07 13:11 | disposition home or self-care (01) ==
LOC: FBCO 08:39
PROVIDERS: Visit Provider Obstetrics & Gynecology
DX: Z39.1 Encounter for care and examination of lactating mother (principal)